=== PATIENT | female | born 1960 | race Caucasian/White ===

== ENCOUNTER 2017-03-23 15:34 | Emergency (ER) | payer OTHER ==
[~2017-03-23] VITALS: Ht 160 cm; Wt 104.3 kg
[~2017-03-23 15:34] MED LIST: SULF1TAB24 PO
[2017-03-23] MEDS ORDERED: FAMOTIDINE 20 MG/2 ML VIAL IVP ONE (16:15)
[2017-03-23] MEDS ORDERED: MORPHINE SULFATE 10 MG/ML VIAL. IV ONE ×2 (16:15→18:00)
[2017-03-23] MEDS ORDERED: IV NORMAL SALINE 1000ML BAG 1,000 ML IV ONE (16:15)
[2017-03-23] MEDS ORDERED: ONDANSETRON PF 4 MG/2 ML VIAL. IV ONE (16:15)
[2017-03-23 16:22] LABS: BASO # 0.1 x10^3/uL (0.0-0.2); BASO % 1 % (0-3); EOS % 3 % (0-3); HEMATOCRIT 40.9 % (36.0-47.0); HEMOGLOBIN 13.4 g/dL (12.0-15.5); LYMPH # 1.6 x10^3/uL (1.0-4.8); LYMPH % 14 % (24-48); MEAN CORPUSCULAR HEMOGLOBIN 28 pg (25-35); MEAN CORPUSCULAR HGB CONC 33 g/dL (31-37); MEAN CORPUSCULAR VOLUME 84 fL (79-100); MONO % 5 % (0-9); NEUT % 78 % (31-73); PLATELET COUNT 257 x10^3/uL (140-400); RED BLOOD COUNT 4.85 x10^6/uL (3.50-5.40); RED CELL DISTRIBUTION WIDTH 14.9 % (11.5-14.5); WHITE BLOOD COUNT 11.4 x10^3/uL (4.0-11.0)
--- NOTE | 2017-03-23 16:24 | PHYS DOC ---
Past Medical History Past Medical History: Arthritis, Asthma, Diverticulitis, Fibromyalgia, Hypertension, Hypothyroid, Other Additional Past Medical Histor: CHRONIC PAIN,TENDONITIS Past Surgical History: Appendectomy, Cholecystectomy, Hysterectomy Alcohol Use: None Drug Use: None Adult General Chief Complaint Chief Complaint: ABDOMINAL PAIN HPI HPI Patient is a 56 year old female with history of fibromyalgia, hypertension, hypothyroidism, diverticulitis, who presents today with generalized abdominal pain, and multiple episodes of diarrhea for the last 4 days. Patient states she believes this is from her diverticulitis. Patient denies any blood in her stools. Denies any nausea vomiting. She states she just came from the pain clinic to get a refill of her chronic pain medicine for fibromyalgia. She states she has tried clear liquid diet and managing her symptoms at home with no relief. Patient's also complaining of urinary frequency. She states she can barely sit down before she has to get up and go use the bathroom. PCP is Dr. Juani Valencia Review of Systems Review of Systems Constitutional: Denies fever or chills [] Eyes: Denies change in visual acuity, redness, or eye pain [] HENT: Denies nasal congestion or sore throat [] Respiratory: Denies cough or shortness of breath [] Cardiovascular: No additional information not addressed in HPI [] GI: Generalized abdominal pain with diarrhea : urinary frequency Musculoskeletal: Denies back pain or joint pain [] Integument: Denies rash or skin lesions [] Neurologic: Denies headache, focal weakness or sensory changes [] Endocrine: Denies polyuria or polydipsia [] Current Medications Current Medications Current Medications Medications (Trade) Dose Ordered Sig/Faye Start Time Stop Time Status Last Admin Dose Admin Famotidine (Pepcid) 20 mg 1X ONCE 03/23/17 16:15 03/23/17 16:17 DC 03/23/17 16:47 20 MG Info (Do NOT chart on this entry -- for MONITORING) 1 each PRN DAILY PRN 03/23/17 17:00 03/25/17 16:59 Iohexol (Omnipaque 300 Mg/ml) 75 ml 1X ONCE 03/23/17 17:00 03/23/17 17:01 DC Morphine Sulfate 5 mg 1X ONCE 03/23/17 18:00 03/23/17 18:01 DC 03/23/17 18:01 5 MG Ondansetron HCl (Zofran) 4 mg 1X ONCE 03/23/17 16:15 03/23/17 16:17 DC 03/23/17 16:45 4 MG Sodium Chloride 1,000 ml @ 1,000 mls/hr 1X ONCE 03/23/17 16:15 03/23/17 17:14 DC 03/23/17 16:45 1,000 MLS/HR Allergies Allergies Allergies Coded Allergies Type Severity Reaction Last Updated Verified Iodine and Iodide Containing Produc Allergy Intermediate RASH 03/23/17 Yes iodine Allergy Intermediate hives 03/23/17 Yes ketorolac Adverse Reaction Intermediate confused 06/17/16 Yes tramadol Adverse Reaction Intermediate confused 06/17/16 Yes Physical Exam Physical Exam Constitutional: Well developed, well nourished, no acute distress, non-toxic appearance. [] HENT: Normocephalic, atraumatic, bilateral external ears normal, oropharynx moist, no oral exudates, nose normal. [] Eyes: PERRLA, EOMI, conjunctiva normal, no discharge. [] Neck: Normal range of motion, no tenderness, supple, no stridor. [] Cardiovascular:Heart rate regular rhythm, no murmur [] Lungs & Thorax: Bilateral breath sounds clear to auscultation [] Abdomen: Rounded abdomen. Bowel sounds normal, soft, diffuse tenderness no point tenderness to the RUQ or RLQ tenderness, no masses, no pulsatile masses. [ ] Skin: Warm, dry, no erythema, no rash. [] Back: No tenderness, no CVA tenderness. [] Extremities: No tenderness, no cyanosis, no clubbing, ROM intact, no edema. [] Neurologic: Alert and oriented X 3, normal motor function, normal sensory function, no focal deficits noted. [] Psychologic: Affect normal, judgement normal, mood normal. [] Current Patient Data Vital Signs Vital Signs Date Time Temp Pulse Resp B/P (MAP) Pulse Ox O2 Delivery O2 Flow Rate FiO2 03/23/17 18:01 18 94 Room Air 03/23/17 17:52 73 140/72 (94) 2.0 03/23/17 16:51 98.1 98.1 Lab Values Laboratory Tests Test 03/23/17 15:45 03/23/17 15:57 White Blood Count 11.4 x10^3/uL (4.0-11.0) H Red Blood Count 4.85 x10^6/uL (3.50-5.40) Hemoglobin 13.4 g/dL (12.0-15.5) Hematocrit 40.9 % (36.0-47.0) Mean Corpuscular Volume 84 fL (79-100) Mean Corpuscular Hemoglobin 28 pg (25-35) Mean Corpuscular Hemoglobin Concent 33 g/dL (31-37) Red Cell Distribution Width 14.9 % (11.5-14.5) H Platelet Count 257 x10^3/uL (140-400) Neutrophils (%) (Auto) 78 % (31-73) H Lymphocytes (%) (Auto) 14 % (24-48) L Monocytes (%) (Auto) 5 % (0-9) Eosinophils (%) (Auto) 3 % (0-3) Basophils (%) (Auto) 1 % (0-3) Neutrophils # (Auto) 8.9 x10^3uL (1.8-7.7) H Lymphocytes # (Auto) 1.6 x10^3/uL (1.0-4.8) Monocytes # (Auto) 0.6 x10^3/uL (0.0-1.1) Eosinophils # (Auto) 0.3 x10^3/uL (0.0-0.7) Basophils # (Auto) 0.1 x10^3/uL (0.0-0.2) Sodium Level 142 mmol/L (136-145) Potassium Level 4.0 mmol/L (3.5-5.1) Chloride Level 104 mmol/L (98-107) Carbon Dioxide Level 30 mmol/L (21-32) Anion Gap 8 (6-14) Blood Urea Nitrogen 11 mg/dL (7-20) Creatinine 0.8 mg/dL (0.6-1.0) Estimated GFR (Cockcroft-Gault) 74.5 BUN/Creatinine Ratio 14 (6-20) Glucose Level 123 mg/dL (70-99) H Calcium Level 9.1 mg/dL (8.5-10.1) Total Bilirubin 0.3 mg/dL (0.2-1.0) Aspartate Amino Transferase (AST) 10 U/L (15-37) L Alanine Aminotransferase (ALT) 15 U/L (14-59) Alkaline Phosphatase 104 U/L (46-116) Creatine Kinase 51 U/L (26-192) Creatine Kinase MB (Mass) 0.7 ng/mL (0.0-3.6) Creatine Kinase MB Relative Index % (0-4) Troponin I Quantitative < 0.017 ng/mL (0.000-0.055) Total Protein 8.1 g/dL (6.4-8.2) Albumin 3.8 g/dL (3.4-5.0) Albumin/Globulin Ratio 0.9 (1.0-1.7) L Lipase 102 U/L (73-393) Urine Collection Type Unknown Urine Color Yellow Urine Clarity Clear Urine pH 7.0 Urine Specific [place] <=1.005 Urine Protein Negative mg/dL (NEG-TRACE) Urine Glucose (UA) Negative mg/dL (NEG) Urine Ketones (Stick) Negative mg/dL (NEG) Urine Blood Negative (NEG) Urine Nitrite Negative (NEG) Urine Bilirubin Negative (NEG) Urine Urobilinogen Dipstick 0.2 mg/dL (0.2 mg/dL) Urine Leukocyte Esterase Moderate (NEG) Urine RBC 0 /HPF (0-2) Urine WBC 11-20 /HPF (0-4) Urine Squamous Epithelial Cells Few /LPF Urine Bacteria 0 /HPF (0-FEW) Laboratory Tests 03/23/17 15:45 Laboratory Tests 03/23/17 15:45 EKG EKG [] Radiology/Procedures Radiology/Procedures []PROCEDURE: CT ABDOMEN PELVIS WO CONTRAST CT study of the abdomen and pelvis without contrast HISTORY: Abdominal pain and diarrhea. History of diverticulitis. Allergy to CT contrast. TECHNIQUE: Noncontrast helical CT scanning of the abdomen and pelvis was performed. Without contrast, the sensitivity to detect organ pathology and GI tract pathology is decreased. PQRS compliance Statement One or more of the following individualized dose reduction techniques were utilized for this study: 1. Automated exposure control 2. Adjustment of the mA and/or kV according to patient size 3. Use of iterative reconstruction technique. Comparison: None available. FINDINGS: The liver and spleen and pancreas are homogeneous in appearance on this noncontrast study. The gallbladder is surgically absent. No extra hepatic biliary ductal dilatation is seen. No adrenal mass is evident. No renal stone or ureteral stone or hydronephrosis or hydroureter is evident. Urinary bladder wall is smooth. There is a small cyst of the upper pole of the right kidney. No focal aneurysmal dilatation of the abdominal aorta is seen. No enlarged abdominal or pelvic lymphadenopathy is seen. The urinary bladder wall is smooth. Sigmoid diverticulosis is seen without diverticulitis. The appendix is not identified. There are no CT findings of appendicitis. No obstructive bowel pattern is seen. The uterus is surgically absent. No free air or free fluid or mesenteric inflammatory change is seen. There is a noncalcified lung nodule within the posterior right costophrenic angle which measures 8 mm. No osteolytic process is seen. IMPRESSION: No acute abnormality of the abdomen or pelvis is seen. No urinary tract stone or hydronephrosis or hydroureter is seen. Sigmoid diverticulosis is seen without diverticulitis. Noncalcified posterior right costophrenic angle lung nodule measuring 8 mm in size. Recommend a follow-up chest CT in 6-12 months. Electronically signed by: Jordan Prather MD (03/23/2017 5:49 PM) DICTATED and SIGNED BY: JORDAN PRATHER MD DATE: 03/23/17 1739 CC: ABHIJIT VALENCIA MD; RONAN NICOLE APRN; ANDREINA,STAFF ~ Course & Med Decision Making Course & Med Decision Making Pertinent Labs and Imaging studies reviewed. (See chart for details) This is a 56-year-old female patient with history of diverticulitis who presents today with abdominal pain and diarrhea for [address] of the abdomen and pelvic is negative for any acute findings. CBC with a WBC of 11.4. CMP with no acute findings. Cardiac workup is negative. Urine positive for UTI. Patient will be discharged with Cipro. Patient was instructed to follow-up with her own primary care doctor or transformation coach as soon as possible. Discharged with Lomotil for diarrhea and Zofran as needed. She gets pain medicine from the pain clinic. Dragon Disclaimer Dragon Disclaimer This electronic medical record was generated, in whole or in part, using a voice recognition dictation system. Departure Departure Impression: Primary Impression: Pyelonephritis Disposition: 01 HOME, SELF-CARE Condition: STABLE Referrals: ABHIJIT VALENCIA MD (PCP) follow up with your doctor in 1-3 days Patient Instructions: Diarrhea, Pyelonephritis, Adult Additional Instructions: You were was seen for a kidney infection and diarrhea. Take the prescribed antibiotics until completed. Follow-up with your own doctor as soon as you can including Dr. Moyer for GI. Scripts Diphenoxylate Hcl/Atropine (LOMOTIL TABLET) 1 Each Tablet 1 TAB PO QID, #20 TAB Prov: RONAN NICOLE APRN 03/23/17 Ciprofloxacin Hcl (CIPRO) 500 Mg Tablet 1 TAB PO BID, #14 TAB Prov: RONAN NICOLE APRN 03/23/17 Ondansetron (ZOFRAN ODT) 4 Mg Tab.rapdis 1 TAB SL Q8HRS, #15 TAB Prov: RONAN NICOLE APRN 03/23/17 RONAN NICOLE APRN Mar 23, 2017 16:24
[2017-03-23 16:38] LABS: CALCIUM 9.1 mg/dL (8.5-10.1); CREATININE 0.8 mg/dL (0.6-1.0); GFR 74.5
[2017-03-23 16:44] LABS: ALBUMIN 3.8 g/dL (3.4-5.0); ALBUMIN/GLOBULIN RATIO 0.9 (1.0-1.7); TOTAL BILIRUBIN 0.3 mg/dL (0.2-1.0); TOTAL PROTEIN 8.1 g/dL (6.4-8.2)
[2017-03-23] MEDS ORDERED: CONTRAST GIVEN MC PRN (17:00)
[2017-03-23] MEDS ORDERED: IOHEXOL 300 MG/ML 75 ML VIAL IV ONE (17:00)
[2017-03-23 17:23] LABS: CKMB MASS 0.7 ng/mL (0.0-3.6)
[2017-03-23 17:25] LABS: CREATINE KINASE 51 U/L (26-192)
--- NOTE | 2017-03-23 17:53 | RAD ---
CT study of the abdomen and pelvis without contrast HISTORY: Abdominal pain and diarrhea. History of diverticulitis. Allergy to CT contrast. TECHNIQUE: Noncontrast helical CT scanning of the abdomen and pelvis was performed. Without contrast, the sensitivity to detect organ pathology and GI tract pathology is decreased. PQRS compliance Statement One or more of the following individualized dose reduction techniques were utilized for this study: 1. Automated exposure control 2. Adjustment of the mA and/or kV according to patient size 3. Use of iterative reconstruction technique. Comparison: None available. FINDINGS: The liver and spleen and pancreas are homogeneous in appearance on this noncontrast study. The gallbladder is surgically absent. No extra hepatic biliary ductal dilatation is seen. No adrenal mass is evident. No renal stone or ureteral stone or hydronephrosis or hydroureter is evident. Urinary bladder wall is smooth. There is a small cyst of the upper pole of the right kidney. No focal aneurysmal dilatation of the abdominal aorta is seen. No enlarged abdominal or pelvic lymphadenopathy is seen. The urinary bladder wall is smooth. Sigmoid diverticulosis is seen without diverticulitis. The appendix is not identified. There are no CT findings of appendicitis. No obstructive bowel pattern is seen. The uterus is surgically absent. No free air or free fluid or mesenteric inflammatory change is seen. There is a noncalcified lung nodule within the posterior right costophrenic angle which measures 8 mm. No osteolytic process is seen. IMPRESSION: No acute abnormality of the abdomen or pelvis is seen. No urinary tract stone or hydronephrosis or hydroureter is seen. Sigmoid diverticulosis is seen without diverticulitis. Noncalcified posterior right costophrenic angle lung nodule measuring 8 mm in size. Recommend a follow-up chest CT in 6-12 months. Electronically signed by: Priyank Prather MD (03/23/2017 5:49 PM)
[2017-03-23 18:10] LABS: BILIRUBIN,URINE NEGATIVE (NEG); GLUCOSE,URINE NEGATIVE (NEG); NITRITE,URINE NEGATIVE (NEG); PROTEIN,URINE NEGATIVE (NEG-TRACE); UROBILINOGEN,URINE 0.2 mg/dL (0.2 mg/dL)
[2017-03-23 18:17] LABS: RBC,URINE 0 /HPF (0-2)
[2017-03-23 18:18] LABS: BACTERIA,URINE 0 /HPF (0-FEW); SQUAMOUS EPITHELIAL CELL,UR FEW /LPF
[2017-03-23 18:30] VITALS: BP 152/81
[2017-03-23] MEDS ORDERED: ONDA4TAB10 SL (18:58)
[2017-03-23] MEDS ORDERED: CIPR500T94 PO (18:58)
[2017-03-23] MEDS ORDERED: DIPH1TAB PO (19:00)
--- NOTE | 2017-03-24 06:34 | EKG ---
[facility] [address] [place] [address] Test Date: 2017-03-23 Test Time: 16:37:14 Pat Name: DANNY MELENDREZ Department: Room: Gender: F Government Auditor: : 1960 Requested By: RONAN NICOLE Order Number: [id number] Reading MD: Renee Glez Measurements Intervals [place] Rate: 71 P: 52 OR: 136 QRS: 49 QRSD: 80 T: 59 QT: 378 QTc: 411 Interpretive Statements SINUS RHYTHM NORMAL ECG RI6.01 No previous ECG available for comparison Electronically Signed On 03-25-2017 19:09:35 CDT by Renee Glez
== END 2017-03-23 19:04 | disposition home or self-care (01) ==
LOC: ER 15:34
DX: N12 Tubulo-interstitial nephritis, not specified as acute or chronic (principal); M19.90 Unspecified osteoarthritis, unspecified site; I10 Essential (primary) hypertension; E07.89 Other specified disorders of thyroid; M79.7 Fibromyalgia; Z90.49 Acquired absence of other specified parts of digestive tract; Z90.710 Acquired absence of both cervix and uterus; Z90.89 Acquired absence of other organs
CPT/HCPCS: 36415; 74176; 80053; 81001; 82553; 83690; 84484; 85027; 87086; 93005; 96361; 96374; 96375; 96376; 99285; J2270; J2405; J7030; S0028

== ENCOUNTER 2017-04-23 20:56 | Emergency (ER) | payer OTHER ==
[~2017-04-23] VITALS: Ht 157.5 cm; Wt 104.3 kg
[~2017-04-23 20:56] MED LIST changes: +CIPR500T94 PO; +DIPH1TAB PO; +ONDA4TAB10 SL
[2017-04-23 21:19] VITALS: BP 156/80
[2017-04-23 21:24] LABS: BILIRUBIN,URINE NEGATIVE (NEG); GLUCOSE,URINE NEGATIVE (NEG); NITRITE,URINE NEGATIVE (NEG); PH,URINE 7.5; PROTEIN,URINE NEGATIVE (NEG-TRACE); UROBILINOGEN,URINE 0.2 mg/dL (0.2 mg/dL)
[2017-04-23 21:35] LABS: BACTERIA,URINE FEW /HPF (0-FEW); RBC,URINE 0 /HPF (0-2); SQUAMOUS EPITHELIAL CELL,UR MOD /LPF
[2017-04-23 22:10] LABS: BASO # 0.1 x10^3/uL (0.0-0.2); BASO % 1 % (0-3); EOS % 3 % (0-3); HEMATOCRIT 41.4 % (36.0-47.0); HEMOGLOBIN 13.7 g/dL (12.0-15.5); LYMPH # 2.3 x10^3/uL (1.0-4.8); LYMPH % 22 % (24-48); MEAN CORPUSCULAR HEMOGLOBIN 28 pg (25-35); MEAN CORPUSCULAR HGB CONC 33 g/dL (31-37); MEAN CORPUSCULAR VOLUME 84 fL (79-100); MONO % 7 % (0-9); NEUT % 68 % (31-73); PLATELET COUNT 252 x10^3/uL (140-400); RED BLOOD COUNT 4.96 x10^6/uL (3.50-5.40); RED CELL DISTRIBUTION WIDTH 14.9 % (11.5-14.5); WHITE BLOOD COUNT 10.6 x10^3/uL (4.0-11.0)
[2017-04-23 22:32] LABS: CALCIUM 9.6 mg/dL (8.5-10.1); CREATININE 0.7 mg/dL (0.6-1.0); GFR 86.6; POTASSIUM 3.7 mmol/L (3.5-5.1)
[2017-04-23 22:37] LABS: ALBUMIN 3.9 g/dL (3.4-5.0); ALBUMIN/GLOBULIN RATIO 0.9 (1.0-1.7); TOTAL BILIRUBIN 0.3 mg/dL (0.2-1.0); TOTAL PROTEIN 8.2 g/dL (6.4-8.2)
[2017-04-23] MEDS ORDERED: SULF1TAB24 PO (23:54)
--- NOTE | 2017-04-23 23:55 | PHYS DOC ---
Past Medical History Past Medical History: Arthritis, Asthma, Diverticulitis, Fibromyalgia, Hypertension, Hypothyroid, Kidney Stone, Other Additional Past Medical Histor: CHRONIC PAIN,TENDONITIS,LITHOTRIPSY Past Surgical History: Appendectomy, Cholecystectomy, Hysterectomy Alcohol Use: None Drug Use: None Adult General Chief Complaint Chief Complaint: ABDOMINAL PAIN HPI HPI 57-year-old female presenting to the emergency department with dysuria polyuria and right flank pain. Pain is been present for 4 hours as a sharp shooting pain that is nonradiating intermittent and without alleviating factors. She reports similar symptoms with a previous UTI. She denies hematuria. She denies nausea vomiting. She denies fevers chills. Review of systems is negative for chest pain shortness of breath nausea vomiting. All other review of systems is negative unless otherwise noted in history of present illness. ED course: 57-year-old female presenting to the ER today with right flank pain and dysuria. Afebrile with mild tachycardia otherwise chronic hypertension present. Pertinent physical exam findings showed mild right CVA tenderness otherwise abdomen was soft and nontender.Soft nontender abdomen without rebound tenderness or guarding present. Negative McBurneys point. Negative Armstrong sign. No ecchymosis present. Blood work sent, urinalysis sent. CBC unremarkable. Urinalysis shows small leuk esterase with a few bacteria. Otherwise unremarkable. Chemistry panel unremarkable. The patient was given Bactrim to go home with for presumed urinary tract infection given the patient's symptoms. The patient was then discharged home in stable condition to follow up with their primary care physician over the next 2-3 days. They were to return if their symptoms worsened or if they were concerned for any reason. [id number] discharge instructions and return precautions were given. Patient's questions were answered to their satisfaction. Patient is comfortable plan. Review of Systems Review of Systems SEE ABOVE. Current Medications Current Medications Current Medications Medications (Trade) Dose Ordered Sig/Faye Start Time Stop Time Status Last Admin Dose Admin Trimethoprim/ Sulfamethoxazole (Bactrim Ds) 1 tab STK-MED ONCE 04/24/17 01:01 04/24/17 01:02 DC Allergies Allergies Allergies Coded Allergies Type Severity Reaction Last Updated Verified Iodine and Iodide Containing Produc Allergy Intermediate RASH 03/23/17 Yes iodine Allergy Intermediate hives 03/23/17 Yes ketorolac Adverse Reaction Intermediate confused 06/17/16 Yes tramadol Adverse Reaction Intermediate confused 06/17/16 Yes Physical Exam Physical Exam SEE ABOVE Constitutional: Well developed, well nourished, no acute distress, non-toxic appearance. [] HENT: Normocephalic, atraumatic, bilateral external ears normal, oropharynx moist, no oral exudates, nose normal. [] Eyes: PERRLA, EOMI, conjunctiva normal, no discharge. [] Neck: Normal range of motion, no tenderness, supple, no stridor. [] Cardiovascular:Heart rate regular rhythm, no murmur [] Lungs & Thorax: Bilateral breath sounds clear to auscultation [] Abdomen: Bowel sounds normal, soft, no tenderness, no masses, no pulsatile masses. [] Skin: Warm, dry, no erythema, no rash. [] Back:see above Extremities: No tenderness, no cyanosis, no clubbing, ROM intact, no edema. [] Neurologic: Alert and oriented X 3, normal motor function, normal sensory function, no focal deficits noted. [] Psychologic: Affect normal, judgement normal, mood normal. [] Current Patient Data Vital Signs Vital Signs Date Time Temp Pulse Resp B/P (MAP) Pulse Ox O2 Delivery O2 Flow Rate FiO2 04/23/17 21:19 98.1 98 20 156/80 (105) 98 Room Air 98.1 Lab Values Laboratory Tests Test 04/23/17 21:10 04/23/17 22:04 Urine Collection Type Unknown Urine Color Yellow Urine Clarity Clear Urine pH 7.5 Urine Specific [place] <=1.005 Urine Protein Negative mg/dL (NEG-TRACE) Urine Glucose (UA) Negative mg/dL (NEG) Urine Ketones (Stick) Negative mg/dL (NEG) Urine Blood Negative (NEG) Urine Nitrite Negative (NEG) Urine Bilirubin Negative (NEG) Urine Urobilinogen Dipstick 0.2 mg/dL (0.2 mg/dL) Urine Leukocyte Esterase Small (NEG) Urine RBC 0 /HPF (0-2) Urine WBC 11-20 /HPF (0-4) Urine Squamous Epithelial Cells Mod /LPF Urine Bacteria Few /HPF (0-FEW) White Blood Count 10.6 x10^3/uL (4.0-11.0) Red Blood Count 4.96 x10^6/uL (3.50-5.40) Hemoglobin 13.7 g/dL (12.0-15.5) Hematocrit 41.4 % (36.0-47.0) Mean Corpuscular Volume 84 fL (79-100) Mean Corpuscular Hemoglobin 28 pg (25-35) Mean Corpuscular Hemoglobin Concent 33 g/dL (31-37) Red Cell Distribution Width 14.9 % (11.5-14.5) H Platelet Count 252 x10^3/uL (140-400) Neutrophils (%) (Auto) 68 % (31-73) Lymphocytes (%) (Auto) 22 % (24-48) L Monocytes (%) (Auto) 7 % (0-9) Eosinophils (%) (Auto) 3 % (0-3) Basophils (%) (Auto) 1 % (0-3) Neutrophils # (Auto) 7.2 x10^3uL (1.8-7.7) Lymphocytes # (Auto) 2.3 x10^3/uL (1.0-4.8) Monocytes # (Auto) 0.7 x10^3/uL (0.0-1.1) Eosinophils # (Auto) 0.3 x10^3/uL (0.0-0.7) Basophils # (Auto) 0.1 x10^3/uL (0.0-0.2) Sodium Level 143 mmol/L (136-145) Potassium Level 3.7 mmol/L (3.5-5.1) Chloride Level 105 mmol/L (98-107) Carbon Dioxide Level 30 mmol/L (21-32) Anion Gap 8 (6-14) Blood Urea Nitrogen 6 mg/dL (7-20) L Creatinine 0.7 mg/dL (0.6-1.0) Estimated GFR (Cockcroft-Gault) 86.6 BUN/Creatinine Ratio 9 (6-20) Glucose Level 90 mg/dL (70-99) Calcium Level 9.6 mg/dL (8.5-10.1) Total Bilirubin 0.3 mg/dL (0.2-1.0) Aspartate Amino Transferase (AST) 12 U/L (15-37) L Alanine Aminotransferase (ALT) 15 U/L (14-59) Alkaline Phosphatase 108 U/L (46-116) Total Protein 8.2 g/dL (6.4-8.2) Albumin 3.9 g/dL (3.4-5.0) Albumin/Globulin Ratio 0.9 (1.0-1.7) L Lipase 168 U/L (73-393) Laboratory Tests 04/23/17 22:04 Laboratory Tests 04/23/17 22:04 EKG EKG [] Radiology/Procedures Radiology/Procedures [] Course & Med Decision Making Course & Med Decision Making Pertinent Labs and Imaging studies reviewed. (See chart for details) [] Dragon Disclaimer Dragon Disclaimer This electronic medical record was generated, in whole or in part, using a voice recognition dictation system. Departure Departure Impression: Primary Impression: UTI (urinary tract infection) Disposition: HOME, SELF-CARE Condition: STABLE Referrals: ABHIJIT GOLDSTEIN MD (PCP) Patient Instructions: Urinary Tract Infection Additional Instructions: Thank you for allowing us to participate in your care today. Followup with your primary care physician in 3 days if your symptoms do not improve. Call your Primary Doctor tomorrow and inform them of your visit today. If you do not have a primary care provider you can ask for a list of our primary care providers. Return to the emergency department you have any new or concerning findings. This should be evaluated by the primary care physician and any necessary consulting services for continued management within a few days after discharge. Return to emergency room if you have any new or concerning symptoms including but not limited to fever, chills, nausea, vomiting, intractable pain, any new rashes, chest pain, shortness of air, uncontrolled bleeding, difficulty breathing, and/or vision loss. Scripts Sulfamethoxazole/Trimethoprim (BACTRIM DS TABLET) 1 Each Tablet 1 TAB PO BID, #14 TAB Prov: JOCELINE SCHUMACHER MD 04/23/17 Problem Qualifiers Primary Impression: UTI (urinary tract infection) Urinary tract infection type: catheter-associated UTI JOCELINE SCHUMACHER MD Apr 23, 2017 23:55
[2017-04-24] MEDS ORDERED: SMZ/TMP 800/160MG TABLET. PO ONE ×2 (01:01→01:30)
== END 2017-04-24 01:06 | disposition home or self-care (01) ==
LOC: ER 20:56
DX: N39.0 Urinary tract infection, site not specified (principal); R00.0 Tachycardia, unspecified; M19.90 Unspecified osteoarthritis, unspecified site; J45.909 Unspecified asthma, uncomplicated; M79.7 Fibromyalgia; I10 Essential (primary) hypertension; E03.9 Hypothyroidism, unspecified; G89.29 Other chronic pain; Z87.440 Personal history of urinary (tract) infections; Z87.442 Personal history of urinary calculi; Z90.49 Acquired absence of other specified parts of digestive tract; Z90.710 Acquired absence of both cervix and uterus; Z91.041 Radiographic dye allergy status; Z88.5 Allergy status to narcotic agent; Z88.8 Allergy status to other drugs, medicaments and biological substances
CPT/HCPCS: 36415; 80053; 81001; 83690; 85027; 87086; 99284-25

== ENCOUNTER 2017-04-29 23:49 | Emergency (ER) | payer OTHER ==
[~2017-04-29] VITALS: Ht 157.5 cm; Wt 104.3 kg
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
[2017-04-30 02:08] VITALS: BP 123/65
== END 2017-04-30 02:13 | disposition home or self-care (01) ==
LOC: ER 23:49
DX: S13.4XXA Sprain of ligaments of cervical spine, initial encounter (principal); S39.012A Strain of muscle, fascia and tendon of lower back, initial encounter; S09.90XA Unspecified injury of head, initial encounter; M19.90 Unspecified osteoarthritis, unspecified site; J45.909 Unspecified asthma, uncomplicated; M79.7 Fibromyalgia; I10 Essential (primary) hypertension; E03.9 Hypothyroidism, unspecified; G89.29 Other chronic pain; Z87.442 Personal history of urinary calculi; Z90.49 Acquired absence of other specified parts of digestive tract; Z88.5 Allergy status to narcotic agent; Z88.8 Allergy status to other drugs, medicaments and biological substances; Z91.041 Radiographic dye allergy status; Z90.710 Acquired absence of both cervix and uterus; V49.40XA Driver injured in collision with unspecified motor vehicles in traffic accident, initial encounter; Y93.I9 Activity, other involving external motion; Y92.410 Unspecified street and highway as the place of occurrence of the external cause; Y99.8 Other external cause status
CPT/HCPCS: 70450; 72125; 72128; 72131; 99284-25

== ENCOUNTER 2017-05-17 22:02 | Emergency (ER) | payer OTHER ==
[~2017-05-17] VITALS: Ht 157.5 cm; Wt 98.9 kg
[2017-05-17 22:13] VITALS: BP 138/83
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
--- NOTE | 2017-05-18 07:27 | RAD ---
Left finger 3 views 05/17/2017 Clinical indication: Left finger pain second digit. Comparison: None. Findings: No acute fracture or traumatic malalignment. Joint spaces are maintained. No abnormal periarticular calcifications. Impression: No acute osseous abnormality, with attention to the second digit.
== END 2017-05-17 22:35 | disposition home or self-care (01) ==
LOC: ER 22:02
DX: S60.022A Contusion of left index finger without damage to nail, initial encounter (principal); M19.90 Unspecified osteoarthritis, unspecified site; J45.909 Unspecified asthma, uncomplicated; M79.7 Fibromyalgia; I10 Essential (primary) hypertension; E03.9 Hypothyroidism, unspecified; G89.29 Other chronic pain; Z90.49 Acquired absence of other specified parts of digestive tract; Z90.710 Acquired absence of both cervix and uterus; Z88.8 Allergy status to other drugs, medicaments and biological substances; Z88.5 Allergy status to narcotic agent; W23.0XXA Caught, crushed, jammed, or pinched between moving objects, initial encounter; Y93.89 Activity, other specified; Y92.89 Other specified places as the place of occurrence of the external cause; Y99.8 Other external cause status
CPT/HCPCS: 73140; 99284

== ENCOUNTER → 2017-07-25 | Outpatient (CLI) | payer OTHER ==
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
== END | disposition home or self-care (01) ==
LOC: RAD 13:08
PROVIDERS: ATTEND Nurse Practitioner Family
DX: M51.36 Other intervertebral disc degeneration, lumbar region (principal); V49.9XXA Car occupant (driver) (passenger) injured in unspecified traffic accident, initial encounter; Y93.89 Activity, other specified; Y92.89 Other specified places as the place of occurrence of the external cause; Y99.8 Other external cause status
CPT/HCPCS: 72050; 72072; 72100

== ENCOUNTER 2018-02-03 18:41 | Emergency (ER) | payer OTHER ==
[2018-02-03] MEDS: cefTRIAXone IM 1 GM VIAL IM (19:22)
== END 2018-02-03 19:35 | disposition home or self-care (01) ==
LOC: ER 19:35
DX: J01.40 Acute pansinusitis, unspecified (principal); J40 Bronchitis, not specified as acute or chronic; G89.29 Other chronic pain; E03.9 Hypothyroidism, unspecified; I10 Essential (primary) hypertension; J45.909 Unspecified asthma, uncomplicated; Z88.6 Allergy status to analgesic agent; Z91.041 Radiographic dye allergy status
CPT/HCPCS: 96372; 99283-25; J0696

== ENCOUNTER → 2018-02-12 | Outpatient (CLI) | payer OTHER | END | disposition home or self-care (01) | LOC: MAMMO 14:17 | DX: Z12.31 Encounter for screening mammogram for malignant neoplasm of breast (principal); I10 Essential (primary) hypertension; E03.9 Hypothyroidism, unspecified | CPT/HCPCS: 77063; 77067 ==

== ENCOUNTER → 2018-06-14 | Outpatient (CLI) | payer OTHER ==
[2018-02-03 19:00] VITALS: BP 145/84
[~2018-06-14] MED LIST changes: +AMOX1TAB61 PO; +BENZ100C PO
--- NOTE | 2018-06-14 15:25 | RAD ---
EXAM: Cervical spine, 3 views. HISTORY: Pain. COMPARISON: None. FINDINGS: 3 views of the cervical spine are obtained. There is no listhesis. The vertebral kim are normal in height. There are bulky anterior osteophytes at C4-C5, and to lesser extent, C5-C6 and C6-C7. There is facet arthropathy at multiple levels. IMPRESSION: 1. Multilevel degenerative change, primarily at C4-C5. 2. No acute osseous finding. Electronically signed by: Claudia Adamson MD (06/14/2018 3:21 PM) [place] [id number]
== END | disposition home or self-care (01) ==
LOC: RAD 14:29
PROVIDERS: ATTEND Physical Medicine & Rehabilitation
DX: M47.892 Other spondylosis, cervical region (principal); M25.78 Osteophyte, vertebrae; M12.88 Other specific arthropathies, not elsewhere classified, other specified site; I10 Essential (primary) hypertension; E03.9 Hypothyroidism, unspecified; Z87.442 Personal history of urinary calculi; Z87.19 Personal history of other diseases of the digestive system; Z87.891 Personal history of nicotine dependence; Z90.49 Acquired absence of other specified parts of digestive tract; Z90.710 Acquired absence of both cervix and uterus; Z88.5 Allergy status to narcotic agent; Z88.6 Allergy status to analgesic agent; Z88.8 Allergy status to other drugs, medicaments and biological substances
CPT/HCPCS: 72040

== ENCOUNTER 2018-06-28 14:41 | Emergency (ER) | payer OTHER ==
[~2018-06-28] VITALS: Ht 157.5 cm; Wt 106.6 kg
[2018-06-28 14:48] VITALS: BP 165/80
--- NOTE | 2018-06-28 15:10 | PHYS DOC ---
Past Medical History Past Medical History: Arthritis, Asthma, Diverticulitis, Fibromyalgia, Hypertension, Hypothyroid, Kidney Stone, Other Additional Past Medical Histor: CHRONIC PAIN,TENDONITIS,LITHOTRIPSY Past Surgical History: Appendectomy, Cholecystectomy, Hysterectomy Alcohol Use: None Drug Use: None Adult General Chief Complaint Chief Complaint: ABDOMINAL PAIN HPI HPI Patient is a 58 year old female presented to ER today for evaluation of nausea vomiting and abdominal distention. Patient said the symptoms have been going on for about a month, however get worse in the last week. Patient said whenever she ate her belly get distended. She denies history of appendectomy, hysterectomy, cholecystectomy. Patient is on OxyContin, morphine chronically for pain syndrome. Patient denies any blood in her stool, no blood in her vomitus. Patient denies any fever. Patient denies any chest pain, no trouble breathing. Review of Systems Review of Systems Constitutional: Denies fever or chills [] Eyes: Denies change in visual acuity, redness, or eye pain [] HENT: Denies nasal congestion or sore throat [] Respiratory: Denies cough or shortness of breath [] Cardiovascular: No additional information not addressed in HPI [] GI: Positive for abdominal pain, nausea or vomiting. : Denies dysuria or hematuria [] Musculoskeletal: Denies back pain or joint pain [] Integument: Denies rash or skin lesions [] Neurologic: Denies headache, focal weakness or sensory changes [] Endocrine: Denies polyuria or polydipsia [] All other systems were reviewed and found to be within normal limits, except as documented in this note. Allergies Allergies Allergies Coded Allergies Type Severity Reaction Last Updated Verified Iodine and Iodide Containing Produc Allergy Intermediate RASH 03/23/17 Yes iodine Allergy Intermediate hives 03/23/17 Yes ketorolac Adverse Reaction Intermediate confused 06/17/16 Yes tramadol Adverse Reaction Intermediate confused 06/17/16 Yes Physical Exam Physical Exam Constitutional: Well developed, well nourished, no acute distress, non-toxic appearance. [] HENT: Normocephalic, atraumatic, bilateral external ears normal, oropharynx moist, no oral exudates, nose normal. [] Eyes: PERRLA, EOMI, conjunctiva normal, no discharge. [] Neck: Normal range of motion, no tenderness, supple, no stridor. [] Cardiovascular:Heart rate regular rhythm, no murmur [] Lungs & Thorax: Bilateral breath sounds clear to auscultation [] Abdomen: Bowel sounds hyperactive, abdomen distended but soft , no tenderness, no masses, no pulsatile masses. [] Skin: Warm, dry, no erythema, no rash. [] Back: No tenderness, no CVA tenderness. [] Extremities: No tenderness, no cyanosis, no clubbing, ROM intact, no edema. [] Neurologic: Alert and oriented X 3, normal motor function, normal sensory function, no focal deficits noted. [] Psychologic: Affect normal, judgement normal, mood normal. [] Current Patient Data Vital Signs Vital Signs Date Time Temp Pulse Resp B/P (MAP) Pulse Ox O2 Delivery O2 Flow Rate FiO2 06/28/18 14:48 98.2 91 18 165/80 (108) 96 Room Air 98.2 Lab Values Laboratory Tests Test 06/28/18 14:50 06/28/18 15:11 Urine Collection Type Clean catch Urine Color Yellow Urine Clarity Clear Urine pH 8.0 Urine Specific [place] 1.020 Urine Protein Negative mg/dL (NEG-TRACE) Urine Glucose (UA) Negative mg/dL (NEG) Urine Ketones (Stick) Negative mg/dL (NEG) Urine Blood Negative (NEG) Urine Nitrite Negative (NEG) Urine Bilirubin Negative (NEG) Urine Urobilinogen Dipstick 0.2 mg/dL (0.2 mg/dL) Urine Leukocyte Esterase Small (NEG) Urine RBC 0 /HPF (0-2) Urine WBC Occ /HPF (0-4) Urine Squamous Epithelial Cells Few /LPF Urine Bacteria 0 /HPF (0-FEW) Urine Mucus Slight /LPF White Blood Count 9.1 x10^3/uL (4.0-11.0) Red Blood Count 4.90 x10^6/uL (3.50-5.40) Hemoglobin 13.8 g/dL (12.0-15.5) Hematocrit 40.9 % (36.0-47.0) Mean Corpuscular Volume 84 fL (79-100) Mean Corpuscular Hemoglobin 28 pg (25-35) Mean Corpuscular Hemoglobin Concent 34 g/dL (31-37) Red Cell Distribution Width 14.3 % (11.5-14.5) Platelet Count 268 x10^3/uL (140-400) Neutrophils (%) (Auto) 63 % (31-73) Lymphocytes (%) (Auto) 26 % (24-48) Monocytes (%) (Auto) 7 % (0-9) Eosinophils (%) (Auto) 3 % (0-3) Basophils (%) (Auto) 1 % (0-3) Neutrophils # (Auto) 5.7 x10^3uL (1.8-7.7) Lymphocytes # (Auto) 2.4 x10^3/uL (1.0-4.8) Monocytes # (Auto) 0.7 x10^3/uL (0.0-1.1) Eosinophils # (Auto) 0.3 x10^3/uL (0.0-0.7) Basophils # (Auto) 0.1 x10^3/uL (0.0-0.2) Sodium Level 141 mmol/L (136-145) Potassium Level 4.1 mmol/L (3.5-5.1) Chloride Level 104 mmol/L (98-107) Carbon Dioxide Level 27 mmol/L (21-32) Anion Gap 10 (6-14) Blood Urea Nitrogen 7 mg/dL (7-20) Creatinine 0.7 mg/dL (0.6-1.0) Estimated GFR (Cockcroft-Gault) 86.2 BUN/Creatinine Ratio 10 (6-20) Glucose Level 100 mg/dL (70-99) H Calcium Level 8.9 mg/dL (8.5-10.1) Total Bilirubin 0.3 mg/dL (0.2-1.0) Aspartate Amino Transferase (AST) 15 U/L (15-37) Alanine Aminotransferase (ALT) 20 U/L (14-59) Alkaline Phosphatase 120 U/L (46-116) H Total Protein 8.1 g/dL (6.4-8.2) Albumin 4.1 g/dL (3.4-5.0) Albumin/Globulin Ratio 1.0 (1.0-1.7) Lipase 120 U/L (73-393) Laboratory Tests 06/28/18 15:11 Laboratory Tests 06/28/18 15:11 EKG EKG [] Radiology/Procedures Radiology/Procedures [facility] [address] [place] [address] IMAGING REPORT Signed PATIENT: DANNY MELENDREZ ACCOUNT: [id number] : 1960 LOCATION: ER AGE: 58 SEX: F EXAM STATUS: REG ER ORD. PHYSICIAN: ZULEIMA CLAUDIO DO REASON: ABDOMINAL PAIN, NAUSEA AND VOMITING PROCEDURE: CT ABDOMEN PELVIS WO CONTRAST Examination: CT of the abdomen pelvis without contrast HISTORY: History of abdominal pain for one month, vomiting COMPARISON: None available TECHNIQUE: Axial CT images of the abdomen pelvis were performed without contrast. Coronal and sagittal reformats are performed Exposure: One or more of the following individualized dose reduction techniques were utilized for this examination: 1. Automated exposure control 2. Adjustment of the mA and/or kV according to patient size 3. Use of iterative reconstruction technique FINDINGS: 4 mm nodule identified in the right lung base. No evidence of free air identified in the abdomen. The evaluation of the solid organs is limited due to lack of IV contrast. The evaluation of bowel is limited due to lack of oral contrast. The visualized noncontrasted liver, spleen, adrenals grossly appears unremarkable. Cholecystectomy clips identified. The stomach is mildly distended. The visualized pancreas grossly appears unremarkable. The small bowel is nondilated. Feces and gas noted in the colon. Multiple colonic diverticulosis identified. Urinary bladder is mildly distended no evidence of lytic bony destructive lesion identified. No evidence of hydronephrosis. Mild degenerative changes lumbar spine. IMPRESSION: 1. No acute intra-abdominal findings. 2. Sigmoid colon diverticulosis. 3. 4 mm nodule identified in the right lung base. Follow-up CT per Fleischner Society guidelines. Electronically signed by: Cameron Mead MD (06/28/2018 3:52 PM) [id number] DICTATED and SIGNED BY: CAMERON MEAD MD DATE: 06/28/18 1545 Impressions: ABDOMINAL PAIN Course & Med Decision Making Course & Med Decision Making Pertinent Labs and Imaging studies reviewed. (See chart for details) [] Dragon Disclaimer Dragon Disclaimer This electronic medical record was generated, in whole or in part, using a voice recognition dictation system. Departure Departure Impression: Primary Impression: Abdominal pain Additional Impression: Constipation Disposition: 01 HOME, SELF-CARE Condition: STABLE Referrals: ABHIJIT GOLDSTEIN MD (PCP) Patient Instructions: Abdominal Migraine, Constipation, Adult Problem Qualifiers ZULEIMA CLAUDIO DO Jun 28, 2018 15:10
[2018-06-28 15:24] LABS: BASO # 0.1 x10^3/uL (0.0-0.2); BASO % 1 % (0-3); EOS # 0.3 x10^3/uL (0.0-0.7); EOS % 3 % (0-3); HEMATOCRIT 40.9 % (36.0-47.0); HEMOGLOBIN 13.8 g/dL (12.0-15.5); LYMPH # 2.4 x10^3/uL (1.0-4.8); LYMPH % 26 % (24-48); MEAN CORPUSCULAR HEMOGLOBIN 28 pg (25-35); MEAN CORPUSCULAR HGB CONC 34 g/dL (31-37); MEAN CORPUSCULAR VOLUME 84 fL (79-100); MONO # 0.7 x10^3/uL (0.0-1.1); MONO % 7 % (0-9); NEUT # 5.7 x10^3uL (1.8-7.7); NEUT % 63 % (31-73); PLATELET COUNT 268 x10^3/uL (140-400); RED CELL DISTRIBUTION WIDTH 14.3 % (11.5-14.5); WHITE BLOOD COUNT 9.1 x10^3/uL (4.0-11.0)
[2018-06-28 15:24] LABS: BILIRUBIN,URINE NEGATIVE (NEG); CLARITY,URINE CLEAR; COLOR,URINE YELLOW; NITRITE,URINE NEGATIVE (NEG); PROTEIN,URINE NEGATIVE (NEG-TRACE); UROBILINOGEN,URINE 0.2 mg/dL (0.2 mg/dL)
[2018-06-28 15:37] LABS: RBC,URINE 0 /HPF (0-2); WBC,URINE OCC /HPF (0-4)
[2018-06-28 15:38] LABS: BACTERIA,URINE 0 /HPF (0-FEW); SQUAMOUS EPITHELIAL CELL,UR FEW /LPF
[2018-06-28 15:41] LABS: CALCIUM 8.9 mg/dL (8.5-10.1); CREATININE 0.7 mg/dL (0.6-1.0); GFR 86.2; POTASSIUM 4.1 mmol/L (3.5-5.1)
[2018-06-28 15:47] LABS: ALBUMIN 4.1 g/dL (3.4-5.0); TOTAL BILIRUBIN 0.3 mg/dL (0.2-1.0); TOTAL PROTEIN 8.1 g/dL (6.4-8.2)
--- NOTE | 2018-06-28 15:55 | RAD ---
Examination: CT of the abdomen pelvis without contrast HISTORY: History of abdominal pain for one month, vomiting COMPARISON: None available TECHNIQUE: Axial CT images of the abdomen pelvis were performed without contrast. Coronal and sagittal reformats are performed Exposure: One or more of the following individualized dose reduction techniques were utilized for this examination: 1. Automated exposure control 2. Adjustment of the mA and/or kV according to patient size 3. Use of iterative reconstruction technique FINDINGS: 4 mm nodule identified in the right lung base. No evidence of free air identified in the abdomen. The evaluation of the solid organs is limited due to lack of IV contrast. The evaluation of bowel is limited due to lack of oral contrast. The visualized noncontrasted liver, spleen, adrenals grossly appears unremarkable. Cholecystectomy clips identified. The stomach is mildly distended. The visualized pancreas grossly appears unremarkable. The small bowel is nondilated. Feces and gas noted in the colon. Multiple colonic diverticulosis identified. Urinary bladder is mildly distended no evidence of lytic bony destructive lesion identified. No evidence of hydronephrosis. Mild degenerative changes lumbar spine. IMPRESSION: 1. No acute intra-abdominal findings. 2. Sigmoid colon diverticulosis. 3. 4 mm nodule identified in the right lung base. Follow-up CT per Fleischner Society guidelines. Electronically signed by: Cameron Mead MD (06/28/2018 3:52 PM) [id number]
== END 2018-06-28 16:14 | disposition home or self-care (01) ==
LOC: ER 14:41
DX: K59.00 Constipation, unspecified (principal); K57.30 Diverticulosis of large intestine without perforation or abscess without bleeding; R91.1 Solitary pulmonary nodule; R11.2 Nausea with vomiting, unspecified; M19.90 Unspecified osteoarthritis, unspecified site; J45.909 Unspecified asthma, uncomplicated; M79.7 Fibromyalgia; I10 Essential (primary) hypertension; E03.9 Hypothyroidism, unspecified; Z87.442 Personal history of urinary calculi; Z90.89 Acquired absence of other organs; Z90.49 Acquired absence of other specified parts of digestive tract; Z90.710 Acquired absence of both cervix and uterus; Z88.8 Allergy status to other drugs, medicaments and biological substances
CPT/HCPCS: 36415; 74176; 80053; 81001; 83690; 85025; 87086; 87186; 99285

== ENCOUNTER 2019-08-24 16:09 | Emergency (ER) | payer OTHER ==
[~2019-08-24] VITALS: Ht 157.5 cm; Wt 90.7 kg
[2019-08-24 16:25] VITALS: BP 164/74
[2019-08-24] MEDS ORDERED: DEXAMETHASONE SOD PHOS 20 MG/5 ML VIAL. PO ONE (17:00)
[2019-08-24] MEDS ORDERED: AMOX1TAB61 PO (17:05)
--- NOTE | 2019-08-24 17:05 | PHYS DOC ---
Past Medical History Past Medical History: Arthritis, Asthma, COPD, Diverticulitis, Fibromyalgia, Hypertension, Hypothyroid, Kidney Stone, Other Additional Past Medical Histor: CHRONIC PAIN,TENDONITIS,LITHOTRIPSY (NICK ESCOBEDO APRN) Past Surgical History: No Surgical History, Appendectomy, Cholecystectomy, Hysterectomy (NICK ESCOBEDO APRN) Alcohol Use: None Drug Use: None (NICK ESCOBEDO APRN) Adult General Chief Complaint Chief Complaint: SORE THROAT HPI HPI Patient is a 59 year old female, accompanied by her family, who presents to the emergency department with complaints of right ear pain and a sensation of water in her right ear, a productive cough with yellow sputum, wheezing, fever up to 100 degrees, and nausea for the last week. Patient states that last night her cough was so severe it caused her to wake up. She also complains of having a sore throat and nasal congestion with the onset of symptoms. Patient denies any abdominal pain, vomiting, diarrhea, or shortness of breath. Currently she rates her pain as 7 out of 10 on the pain scale, she states that her narcotic medications that are prescribed for her chronic pain are only helping a little bit. She denies any body aches, weakness, or headache. All other ROS is neg unless otherwise noted in HPI. (NICK ESCOBEDO APRN) Review of Systems Review of Systems See Above (NICK ESCOBEDO APRN) Current Medications Current Medications Current Medications Medications (Trade) Dose Ordered Sig/Faye Start Time Stop Time Status Last Admin Dose Admin Dexamethasone Sodium Phosphate (Decadron) 10 mg 1X ONCE 08/24/19 17:00 08/24/19 17:01 DC 08/24/19 17:01 10 MG (BRANDIE PHILLIPS MD) Allergies Allergies Allergies Coded Allergies Type Severity Reaction Last Updated Verified Iodine and Iodide Containing Produc Allergy Intermediate RASH 03/23/17 Yes iodine Allergy Intermediate hives 03/23/17 Yes ketorolac Adverse Reaction Intermediate confused 06/17/16 Yes tramadol Adverse Reaction Intermediate confused 06/17/16 Yes (BRADNIE PHILLIPS MD) Physical Exam Physical Exam See Above Constitutional: Well developed, well nourished, no acute distress, non-toxic appearance, obese [] HENT: Normocephalic, atraumatic, bilateral external ears normal, bilateral TMs normal, posterior pharynx without erythema or exudate, oropharynx moist, no oral exudates, nasal turbinates edematous and erythematous bilaterally Eyes: PERRLA, EOMI, conjunctiva normal, no discharge. [] Neck: Normal range of motion, no tenderness, supple, no stridor. [] Cardiovascular: Heart rate regular rhythm, no murmur [] Lungs & Thorax: Bilateral breath sounds clear to auscultation in upper lobes bilat, coarse and slightly diminished in posterior short[] Skin: Warm, dry, no erythema, no rash. [] Back: No tenderness Extremities:No cyanosis, no clubbing, ROM intact, no edema. [] Neurologic: Alert and oriented X 3, no focal deficits noted. [] Psychologic: Affect normal, judgement normal, mood normal. [] (NICK ESCOBEDO APRN) Current Patient Data Vital Signs Vital Signs Date Time Temp Pulse Resp B/P (MAP) Pulse Ox O2 Delivery O2 Flow Rate FiO2 08/24/19 16:25 98.3 75 17 164/74 (104) 96 Room Air 98.3 (BRANDIE PHILLIPS MD) EKG EKG [] (NICK ESCOBEDO APRN) Radiology/Procedures Radiology/Procedures [] (NICK ESCOBEDO APRN) Course & Med Decision Making Course & Med Decision Making Pertinent Labs and Imaging studies reviewed. (See chart for details) dx: URI, acute bronchitis, pharyngititis Prescription for Augmentin written due to patient's history of COPD. Patient was given 10 mg of by mouth Decadron in the emergency department. Recommend follow- up with primary care doctor in 1-2 days for reexamination. Continue using her inhalers as prescribed. Patient verbalized an understanding of home care, medications, follow-up, and return to ED instructions and was in agreement with the plan of care. [] (NICK ESCOBEDO APRN) Course & Med Decision Making Staff Physician Addendum: I was working in the ER during the course of this patient's visit. I was available for consultation as needed, but I was not directly involved in the care of this patient. (BRANDIE PHILLIPS MD) Dragon Disclaimer Dragon Disclaimer This electronic medical record was generated, in whole or in part, using a voice recognition dictation system. (NICK ESCOBEDO APRN) Departure Departure Impression: Primary Impression: URI (upper respiratory infection) Additional Impressions: Bronchitis Pharyngitis Disposition: 01 HOME, SELF-CARE Condition: STABLE Referrals: ABHIJIT GOLDSTEIN MD (PCP) Patient Instructions: Acute Bronchitis, [id number], Upper Respiratory Infection, Adult, [id number], Viral Pharyngitis Additional Instructions: Fill prescription(s) and use as directed. Recommend use of a Cool mist humidifier in room at bedtime. Alternate Tylenol or ibuprofen as needed for pain/fever. Increase clear fluids. Avoid airway triggers such as smoke, fragrance, dust, and pollen. May take [id number] cough suppressants as needed. Follow-up with your primary care doctor in 1-2 days, return to the ER if symptoms worsen. Scripts Amoxicillin/Potassium Clav (AUGMENTIN 875-125 TABLET) 1 Each Tablet 1 TAB PO BID for 7 Days, #14 TAB 0 Refills Prov: NICK ESCOBEDO APRN 08/24/19 Problem Qualifiers Primary Impression: URI (upper respiratory infection) URI type: unspecified URI Qualified Codes: J06.9 - Acute upper respiratory infection, unspecified Additional Impressions: Pharyngitis Pharyngitis/tonsillitis etiology: unspecified etiology Qualified Codes: J02.9 - Acute pharyngitis, unspecified NICK ESCOBEDO APRN Aug 24, 2019 17:05 BRANDIE PHILLIPS MD Aug 24, 2019 17:19
== END 2019-08-24 17:08 | disposition home or self-care (01) ==
LOC: ER 16:09
DX: J44.9 Chronic obstructive pulmonary disease, unspecified (principal); H92.01 Otalgia, right ear; J02.9 Acute pharyngitis, unspecified; I10 Essential (primary) hypertension; E03.9 Hypothyroidism, unspecified; G89.29 Other chronic pain; Z91.041 Radiographic dye allergy status; Z88.6 Allergy status to analgesic agent; Z88.8 Allergy status to other drugs, medicaments and biological substances
CPT/HCPCS: 99283; J1100

== ENCOUNTER → 2019-10-15 | Outpatient (CLI) | payer OTHER ==
--- NOTE | 2019-10-15 16:53 | RAD ---
MR of the left wrist HISTORY: Mass at the dorsal right wrist. TECHNIQUE: Routine multiplanar sequences are obtained wrist and distal forearm. FINDINGS: There is prominent subcutaneous fatty signal posterior to the distal radius and ulna extending to the level of the radiocarpal joint. This is very poorly encapsulated but measures about 4 cm longitudinal by 1 cm thickness. Difficult to determine width. This could represent a poorly encapsulated lipoma. Consists of mostly fatty signal, apart from thin internal septations. There is more prominent linear nonfatty signal at its distal aspect, just posterior to the radio scaphoid joint, may be within the lesion or some adjacent scarring/fibrosis. No evidence of acute fracture. No aggressive bone destruction. Patchy cystic-type change within carpal bones particularly the proximal capitate and proximal hamate bone. These are likely degenerative. There is some thinning or chondromalacia at the lunocapitate joint. Mild degenerative changes at the triscaphe and first carpometacarpal joint. Degenerative changes at the radiocarpal joint. Ulna minus variance. No evidence of triangular fibrocartilage tear. Extensor carpi ulnaris tendon is subluxed medially over the ulnar styloid but intrinsically intact. Other extensor compartments are intact. Flexor tendons are intact. Median nerve appears unremarkable. Fluid signal lesion anterior to the radioscaphoid joint, most compatible with a ganglion or cyst, measures 18 mm. No significant joint effusion. IMPRESSION: 1. Very poorly defined prominent subcutaneous fatty tissue posterior to the distal radius and ulna with some internal septations. This may represent a poorly encapsulated atypical lipoma. Some more prominent linear low signal within the fat at the distal aspect could be within the lesion or fibrosis or scarring within the adjacent fat. The clinical concern, could obtain periodic follow-up MR to document stability, or sooner if there is clinical growth. 2. No soft tissue cyst or ganglion anterior to the radioscaphoid joint. 3. DJD. 4. Mild medial subluxation of the extensor carpi ulnaris tendon. Electronically signed by: Dinesh eDnson MD (10/15/2019 4:50 PM) [id number]
== END | disposition home or self-care (01) ==
LOC: MRI 15:08
PROVIDERS: ATTEND Orthopaedic Surgery
DX: R22.31 Localized swelling, mass and lump, right upper limb (principal); S63.091A Other subluxation of right wrist and hand, initial encounter; M19.031 Primary osteoarthritis, right wrist; X58.XXXA Exposure to other specified factors, initial encounter; Y93.89 Activity, other specified; Y92.89 Other specified places as the place of occurrence of the external cause; Y99.8 Other external cause status
CPT/HCPCS: 73221

== ENCOUNTER 2019-11-16 17:03 | Emergency (ER) | payer OTHER ==
[~2019-11-16] VITALS: Ht 160 cm; Wt 90.0 kg
[2019-11-16 17:15] VITALS: BP 158/84
[2019-11-16] MEDS ORDERED: IV NORMAL SALINE 1000ML BAG 1,000 ML IV ONE (17:45)
[2019-11-16] MEDS ORDERED: ONDANSETRON PF 4 MG/2 ML VIAL. IVP ONE (17:45)
[2019-11-16] MEDS ORDERED: MORPHINE SULFATE 4 MG/ML VIAL. IV ONE (17:45)
[2019-11-16 18:02] LABS: BARBITURATES NEG (NEG); BENZODIAZEPINES NEG (NEG); CANNABINOIDS NEG (NEG); COCAINE NEG (NEG); METHADONE NEG (NEG); OPIATES POS (NEG); PHENCYCLIDINE NEG (NEG)
[2019-11-16 18:06] LABS: AMPHETAMINE/METHAMPHETAMINE NEG (NEG)
[2019-11-16 18:08] LABS: BILIRUBIN,URINE NEGATIVE (NEG); CLARITY,URINE CLEAR; COLOR,URINE YELLOW; NITRITE,URINE NEGATIVE (NEG); PROTEIN,URINE NEGATIVE (NEG-TRACE); UROBILINOGEN,URINE 0.2 mg/dL (0.2 mg/dL)
[2019-11-16 18:21] LABS: BASO # 0.1 x10^3/uL (0.0-0.2); BASO % 1 % (0-3); EOS # 0.1 x10^3/uL (0.0-0.7); EOS % 1 % (0-3); HEMOGLOBIN 14.3 g/dL (12.0-15.5); LYMPH # 1.2 x10^3/uL (1.0-4.8); LYMPH % 17 % (24-48); MEAN CORPUSCULAR HEMOGLOBIN 28 pg (25-35); MEAN CORPUSCULAR HGB CONC 33 g/dL (31-37); MEAN CORPUSCULAR VOLUME 85 fL (79-100); MONO # 0.4 x10^3/uL (0.0-1.1); MONO % 5 % (0-9); NEUT # 5.3 x10^3/uL (1.8-7.7); NEUT % 76 % (31-73); PLATELET COUNT 247 x10^3/uL (140-400); RED BLOOD COUNT 5.04 x10^6/uL (3.50-5.40); RED CELL DISTRIBUTION WIDTH 14.7 % (11.5-14.5)
[2019-11-16 18:21] LABS: BACTERIA,URINE FEW /HPF (0-FEW); RBC,URINE 0 /HPF (0-2); SQUAMOUS EPITHELIAL CELL,UR MOD /LPF
[2019-11-16 18:44] LABS: CALCIUM 9.1 mg/dL (8.5-10.1); CREATININE 0.6 mg/dL (0.6-1.0); GFR 102.7; POTASSIUM 3.8 mmol/L (3.5-5.1)
[2019-11-16 18:49] LABS: ALBUMIN/GLOBULIN RATIO 1.1 (1.0-1.7); TOTAL BILIRUBIN 0.5 mg/dL (0.2-1.0); TOTAL PROTEIN 7.7 g/dL (6.4-8.2)
--- NOTE | 2019-11-16 19:16 | RAD ---
EXAM: CT ABDOMEN/PELVIS WITH CONTRAST. HISTORY: Abdominal pain. TECHNIQUE: Computed tomography of the abdomen and pelvis was performed after the intravenous administration of iodinated contrast. One or more of the following individualized dose reduction techniques were utilized for this examination: 1. Automated exposure control. 2. Adjustment of the mA and/or kV according to patient size. 3. Use of iterative reconstruction technique. COMPARISON: 06/28/2018. FINDINGS: Lung windows through the visualized portions of the bases reveal mild bronchial wall thickening and atelectasis. An uncalcified 6 mm nodule in the right costophrenic angle is unchanged chronically and likely benign. Bone windows reveal no suspicious lesions. The gallbladder is surgically absent. The common duct measures 9 mm. There is no clear cause for distal obstruction. The liver, pancreas, adrenal glands, spleen, and kidneys are unremarkable without contrast. There are no pathologically enlarged lymph nodes. The uterus is surgically absent. Sigmoid diverticulosis is moderate. Mild sigmoid wall thickening may reflect prior episodes of diverticulitis. There is no clear acute inflammation. There is no small bowel obstruction. IMPRESSION: 1. Mild sigmoid wall thickening may reflect prior episodes of diverticulitis. No clear acute inflammation or other cause for pain is identified. 2. Mild extrahepatic biliary dilatation status post cholecystectomy. Correlate for cholestasis to assess significance. 3. Mild bronchial wall thickening. Correlate for acute or chronic bronchitis. Electronically signed by: Robert Judge MD (11/16/2019 7:12 PM) GAVIN
[2019-11-16] MEDS ORDERED: CEPHALEXIN 250 MG CAPSULE. PO STA (19:27)
[2019-11-16] MEDS ORDERED: CEPH500T PO (19:34)
[2019-11-16] MEDS ORDERED: DICY20TA3 PO (19:34)
[2019-11-16] MEDS ORDERED: ONDA4TAB12 PO (19:34)
--- NOTE | 2019-11-16 19:34 | PHYS DOC ---
Past Medical History Past Medical History: Arthritis, Asthma, COPD, Diverticulitis, Fibromyalgia, Hypertension, Hypothyroid, Kidney Stone, Other Additional Past Medical Histor: CHRONIC PAIN,TENDONITIS,LITHOTRIPSY Past Surgical History: No Surgical History, Appendectomy, Cholecystectomy, Hysterectomy Alcohol Use: None Drug Use: None Adult General Chief Complaint Chief Complaint: ABDOMINAL PAIN [facility] HPI Patient is a 59 year old female with history of COPD, hypertension, asthma, fibromyalgia, arthritis, on morphine for chronic pain, cholecystectomy, appendectomy, who presents to the ED today complaining of 10 out of 10 generalized abdominal pain that began today with diarrhea and nausea. Patient denies any exacerbating or relieving factors. Reports taking Tylenol, Pepto- Bismol, morphine with no relief. She is also complaining of urinary frequency. Review of Systems Review of Systems Constitutional: Denies fever or chills [] Eyes: Denies change in visual acuity, redness, or eye pain [] HENT: Denies nasal congestion or sore throat [] Respiratory: Denies cough or shortness of breath [] Cardiovascular: No additional information not addressed in HPI [] GI: Reports abdominal pain, nausea, diarrhea, denies any vomiting, denies any hematemesis, denies any bloody stools : Reports urinary frequency Denies dysuria or hematuria [] Musculoskeletal: Denies back pain or joint pain [] Integument: Denies rash or skin lesions [] Neurologic: Denies headache, focal weakness or sensory changes [] All other systems were reviewed and found to be within normal limits, except as documented in this note. Current Medications Current Medications Current Medications Medications (Trade) Dose Ordered Sig/Faye Start Time Stop Time Status Last Admin Dose Admin Cephalexin HCl (Keflex) 500 mg 1X STAT 11/16/19 19:27 11/16/19 19:29 DC 11/16/19 20:04 500 MG Morphine Sulfate (Morphine Sulfate) 4 mg 1X ONCE 11/16/19 17:45 11/16/19 17:46 DC 11/16/19 18:09 4 MG Ondansetron HCl (Zofran) 4 mg 1X ONCE 11/16/19 17:45 11/16/19 17:46 DC 11/16/19 18:09 4 MG Sodium Chloride 1,000 ml @ 1,000 mls/hr 1X ONCE 11/16/19 17:45 11/16/19 18:44 DC 11/16/19 18:08 1,000 MLS/HR Allergies Allergies Allergies Coded Allergies Type Severity Reaction Last Updated Verified Iodine and Iodide Containing Produc Allergy Intermediate RASH 03/23/17 Yes iodine Allergy Intermediate hives 03/23/17 Yes ketorolac Adverse Reaction Intermediate confused 06/17/16 Yes tramadol Adverse Reaction Intermediate confused 06/17/16 Yes Physical Exam Physical Exam Constitutional: Well developed, well nourished, no acute distress, non-toxic appearance. [] HENT: Normocephalic, atraumatic, bilateral external ears normal, oropharynx moist, no oral exudates, nose normal. [] Eyes: PERRLA, EOMI, conjunctiva normal, no discharge. [] Neck: Normal range of motion, no tenderness, supple, no stridor. [] Cardiovascular:Heart rate regular rhythm, no murmur [] Lungs & Thorax: Bilateral breath sounds clear to auscultation [] Abdomen: Bowel sounds normal, soft, no tenderness, no masses, no pulsatile masses. [] Skin: Warm, dry, no erythema, no rash. [] Back: No tenderness, no CVA tenderness. [] Extremities: No tenderness, no cyanosis, no clubbing, ROM intact, no edema. [] Neurologic: Alert and oriented X 3, normal motor function, normal sensory function, no focal deficits noted. [] Psychologic:depressed mood. Tearful Current Patient Data Vital Signs Vital Signs Date Time Temp Pulse Resp B/P (MAP) Pulse Ox O2 Delivery O2 Flow Rate FiO2 11/16/19 18:09 18 11/16/19 17:15 98.2 101 158/84 (108) 96 Room Air 98.2 Lab Values Laboratory Tests Test 11/16/19 17:15 11/16/19 18:15 Urine Collection Type Unknown Urine Color Yellow Urine Clarity Clear Urine pH 8.0 Urine Specific [place] 1.010 Urine Protein Negative mg/dL (NEG-TRACE) Urine Glucose (UA) Negative mg/dL (NEG) Urine Ketones (Stick) Negative mg/dL (NEG) Urine Blood Negative (NEG) Urine Nitrite Negative (NEG) Urine Bilirubin Negative (NEG) Urine Urobilinogen Dipstick 0.2 mg/dL (0.2 mg/dL) Urine Leukocyte Esterase Moderate (NEG) Urine RBC 0 /HPF (0-2) Urine WBC 5-10 /HPF (0-4) Urine Squamous Epithelial Cells Mod /LPF Urine Bacteria Few /HPF (0-FEW) Urine Opiates Screen Pos (NEG) Urine Methadone Screen Neg (NEG) Urine Barbiturates Neg (NEG) Urine Phencyclidine Screen Neg (NEG) Urine Amphetamine/Methamphetamine Neg (NEG) Urine Benzodiazepines Screen Neg (NEG) Urine Cocaine Screen Neg (NEG) Urine Cannabinoids Screen Neg (NEG) Urine Ethyl Alcohol Neg (NEG) White Blood Count 7.0 x10^3/uL (4.0-11.0) Red Blood Count 5.04 x10^6/uL (3.50-5.40) Hemoglobin 14.3 g/dL (12.0-15.5) Hematocrit 43.0 % (36.0-47.0) Mean Corpuscular Volume 85 fL (79-100) Mean Corpuscular Hemoglobin 28 pg (25-35) Mean Corpuscular Hemoglobin Concent 33 g/dL (31-37) Red Cell Distribution Width 14.7 % (11.5-14.5) H Platelet Count 247 x10^3/uL (140-400) Neutrophils (%) (Auto) 76 % (31-73) H Lymphocytes (%) (Auto) 17 % (24-48) L Monocytes (%) (Auto) 5 % (0-9) Eosinophils (%) (Auto) 1 % (0-3) Basophils (%) (Auto) 1 % (0-3) Neutrophils # (Auto) 5.3 x10^3/uL (1.8-7.7) Lymphocytes # (Auto) 1.2 x10^3/uL (1.0-4.8) Monocytes # (Auto) 0.4 x10^3/uL (0.0-1.1) Eosinophils # (Auto) 0.1 x10^3/uL (0.0-0.7) Basophils # (Auto) 0.1 x10^3/uL (0.0-0.2) Sodium Level 145 mmol/L (136-145) Potassium Level 3.8 mmol/L (3.5-5.1) Chloride Level 107 mmol/L (98-107) Carbon Dioxide Level 29 mmol/L (21-32) Anion Gap 9 (6-14) Blood Urea Nitrogen 4 mg/dL (7-20) L Creatinine 0.6 mg/dL (0.6-1.0) Estimated GFR (Cockcroft-Gault) 102.7 BUN/Creatinine Ratio 7 (6-20) Glucose Level 94 mg/dL (70-99) Calcium Level 9.1 mg/dL (8.5-10.1) Total Bilirubin 0.5 mg/dL (0.2-1.0) Aspartate Amino Transferase (AST) 11 U/L (15-37) L Alanine Aminotransferase (ALT) 13 U/L (14-59) L Alkaline Phosphatase 93 U/L (46-116) Total Protein 7.7 g/dL (6.4-8.2) Albumin 4.0 g/dL (3.4-5.0) Albumin/Globulin Ratio 1.1 (1.0-1.7) Lipase 131 U/L (73-393) Ethyl Alcohol Level < 10 mg/dL (0-10) Laboratory Tests 11/16/19 18:15 Laboratory Tests 11/16/19 18:15 EKG EKG [] Radiology/Procedures Radiology/Procedures []PROCEDURE: CT ABDOMEN PELVIS WO CONTRAST EXAM: CT ABDOMEN/PELVIS WITH CONTRAST. HISTORY: Abdominal pain. TECHNIQUE: Computed tomography of the abdomen and pelvis was performed after the intravenous administration of iodinated contrast. One or more of the following individualized dose reduction techniques were utilized for this examination: 1. Automated exposure control. 2. Adjustment of the mA and/or kV according to patient size. 3. Use of iterative reconstruction technique. COMPARISON: 06/28/2018. FINDINGS: Lung windows through the visualized portions of the bases reveal mild bronchial wall thickening and atelectasis. An uncalcified 6 mm nodule in the right costophrenic angle is unchanged chronically and likely benign. Bone windows reveal no suspicious lesions. The gallbladder is surgically absent. The common duct measures 9 mm. There is no clear cause for distal obstruction. The liver, pancreas, adrenal glands, spleen, and kidneys are unremarkable without contrast. There are no pathologically enlarged lymph nodes. The uterus is surgically absent. Sigmoid diverticulosis is moderate. Mild sigmoid wall thickening may reflect prior episodes of diverticulitis. There is no clear acute inflammation. There is no small bowel obstruction. IMPRESSION: 1. Mild sigmoid wall thickening may reflect prior episodes of diverticulitis. No clear acute inflammation or other cause for pain is identified. 2. Mild extrahepatic biliary dilatation status post cholecystectomy. Correlate for cholestasis to assess significance. 3. Mild bronchial wall thickening. Correlate for acute or chronic bronchitis. Electronically signed by: Robert Judge MD (11/16/2019 7:12 PM) [id number] DICTATED and SIGNED BY: ELVER JUDGE MD DATE: 11/16/191911 Course & Med Decision Making Course & Med Decision Making Pertinent Labs and Imaging studies reviewed. (See chart for details) This is a 59-year-old female patient presenting to the ED today complaining of generalized abdominal pain with diarrhea nausea and urinary frequency since this morning. Urine analysis is noted for large amount of leukocytes, CBC with normal WBC, normal hemoglobin and hematocrit. CMP with no acute findings. CT of the abdomen and pelvic was negative for any acute findings. Discharged to home on cephalexin, first dose given in the ED. Follow-up with PCP next week Dragon Disclaimer Dragon Disclaimer This electronic medical record was generated, in whole or in part, using a voice recognition dictation system. Departure Departure Impression: Primary Impression: UTI (urinary tract infection) Additional Impressions: Diarrhea Abdominal pain Nausea alone Disposition: HOME, SELF-CARE Condition: STABLE Referrals: ABHIJIT GOLDSTEIN MD (PCP) follow up on Monday Patient Instructions: Abdominal Pain, Urinary Tract Infection Additional Instructions: You were evaluated in the emergency room for abdominal pain, nausea and diarrhea, your CAT scan of the abdomen and pelvic was negative for any acute findings. Your urine was positive for infection. We put you on antibiotics, ensure you complete them. You can take your own pain medicine at home. Take the rest of the prescribed medications as ordered. Follow-up with your doctor in the course of next week. Scripts Dicyclomine Hcl (DICYCLOMINE HCL) 20 Mg Tablet 1 TAB PO TID, #30 TAB 0 Refills Prov: MUTUNGARONAN ENDOSCOPY TECHNICAN 11/16/19 Ondansetron (ONDANSETRON ODT) 4 Mg Tab.rapdis 1 TAB PO PRN Q6-8HRS, #16 TAB Prov: MUTUNGA,RONAN ENDOSCOPY TECHNICAN 11/16/19 Cephalexin (CEPHALEXIN) 500 Mg Tablet 1 TAB PO BID, #14 TAB Prov: MUTUNGARONAN ENDOSCOPY TECHNICAN 11/16/19 Problem Qualifiers Primary Impression: UTI (urinary tract infection) Urinary tract infection type: site unspecified Hematuria presence: without hematuria Qualified Codes: N39.0 - Urinary tract infection, site not specified Additional Impressions: Diarrhea Diarrhea type: unspecified type Qualified Codes: R19.7 - Diarrhea, unspecified Abdominal pain Abdominal location: generalized Qualified Codes: R10.84 - Generalized abdominal pain RONAN NICOLE APRN Nov 16, 2019 19:34
== END 2019-11-16 19:59 | disposition home or self-care (01) ==
LOC: ER 17:03
DX: N39.0 Urinary tract infection, site not specified (principal); R19.7 Diarrhea, unspecified; J44.9 Chronic obstructive pulmonary disease, unspecified; I10 Essential (primary) hypertension; E03.9 Hypothyroidism, unspecified; G89.29 Other chronic pain; Z87.442 Personal history of urinary calculi; Z90.89 Acquired absence of other organs; Z90.49 Acquired absence of other specified parts of digestive tract; Z90.710 Acquired absence of both cervix and uterus; Z91.041 Radiographic dye allergy status; Z88.6 Allergy status to analgesic agent; Z88.8 Allergy status to other drugs, medicaments and biological substances
CPT/HCPCS: 36415; 74176; 80053; 80307; 81001; 83690; 85025; 87086; 96374; 96375; 99285; G0480; J2270; J2405; J7030

== ENCOUNTER 2019-11-30 17:57 | Emergency (ER) | payer OTHER ==
[~2019-11-30] VITALS: Ht 160 cm; Wt 90.0 kg
[~2019-11-30 17:57] MED LIST changes: +CEPH500T PO; +DICY20TA3 PO; +ONDA4TAB12 PO
[2019-11-30 18:19] LABS: BILIRUBIN,URINE NEGATIVE (NEG); CLARITY,URINE CLEAR; COLOR,URINE YELLOW; NITRITE,URINE NEGATIVE (NEG); PH,URINE 7.5; PROTEIN,URINE NEGATIVE (NEG-TRACE); UROBILINOGEN,URINE 0.2 mg/dL (0.2 mg/dL)
[2019-11-30 18:37] LABS: BACTERIA,URINE 0 /HPF (0-FEW); RBC,URINE 0 /HPF (0-2); SQUAMOUS EPITHELIAL CELL,UR FEW /LPF
[2019-11-30 19:27] LABS: BASO # 0.1 x10^3/uL (0.0-0.2); BASO % 1 % (0-3); EOS # 0.3 x10^3/uL (0.0-0.7); EOS % 5 % (0-3); HEMATOCRIT 42.7 % (36.0-47.0); HEMOGLOBIN 14.1 g/dL (12.0-15.5); LYMPH # 1.9 x10^3/uL (1.0-4.8); LYMPH % 27 % (24-48); MEAN CORPUSCULAR HEMOGLOBIN 29 pg (25-35); MEAN CORPUSCULAR HGB CONC 33 g/dL (31-37); MEAN CORPUSCULAR VOLUME 87 fL (79-100); MONO # 0.4 x10^3/uL (0.0-1.1); MONO % 6 % (0-9); NEUT # 4.4 x10^3/uL (1.8-7.7); NEUT % 61 % (31-73); PLATELET COUNT 260 x10^3/uL (140-400); RED BLOOD COUNT 4.92 x10^6/uL (3.50-5.40); RED CELL DISTRIBUTION WIDTH 14.4 % (11.5-14.5); WHITE BLOOD COUNT 7.2 x10^3/uL (4.0-11.0)
[2019-11-30 19:40] LABS: CALCIUM 9.3 mg/dL (8.5-10.1); CREATININE 0.7 mg/dL (0.6-1.0); GFR 85.9; POTASSIUM 4.1 mmol/L (3.5-5.1)
--- NOTE | 2019-11-30 19:44 | RAD ---
Exam: CT abdomen and pelvis without contrast INDICATION: Left flank pain TECHNIQUE: Sequential axial images through the abdomen and pelvis obtained without IV contrast. Sagittal and coronal reformatted images were reconstructed from the axial data and reviewed. Comparisons: 11/16/2019 FINDINGS: Heart size is normal. No pericardial effusion. Mild bronchial wall thickening noted at the lung bases. There is a 6 mm nodule in the right lower lobe series 2 image 26. Liver, spleen, pancreas and adrenals are unremarkable. Gallbladder is surgically absent. Several nonobstructing right renal calculi are noted. No ureteral calculi. No perinephric inflammation or hydronephrosis. Bladder is partially distended and appears thin-walled. Uterus is absent. No abnormal adnexal mass. Few scattered diverticula noted within the descending and sigmoid colon without evidence of acute diverticulitis. Remainder of the large and small bowel are unremarkable. No free intra-abdominal air or fluid. No obstruction. Abdominal aorta has a normal course and caliber. No enlarged abdominal lymph nodes are identified. No suspicious osseous lesions or acute fractures. IMPRESSION: 1. No ureteral calculi or evidence for obstructive uropathy. 2. Several nonobstructing right renal calculi. 3. Mild bronchial thickening, can be seen in setting of bronchitis. 4. Diverticulosis without evidence of acute diverticulitis. 5. A 6 mm nodule in the right lower lobe. In a low-risk patient no further follow-up imaging is recommended. In a high-risk patient and optional one-year follow-up CT performed. Exposure: One or more of the following in the visualized dose reduction techniques were utilized for this examination: 1. Automated exposure control 2. Adjustment of the MA and/or KV according to patient size 3. Use of iterative of reconstructive technique Electronically signed by: Jj Cabrera MD (11/30/2019 7:41 PM) [id number]
[2019-11-30 19:45] LABS: ALBUMIN 4.3 g/dL (3.4-5.0); ALBUMIN/GLOBULIN RATIO 1.1 (1.0-1.7); TOTAL BILIRUBIN 0.3 mg/dL (0.2-1.0); TOTAL PROTEIN 8.1 g/dL (6.4-8.2)
--- NOTE | 2019-11-30 19:50 | PHYS DOC ---
Past Medical History Past Medical History: Arthritis, Asthma, COPD, Diverticulitis, Fibromyalgia, Hypertension, Hypothyroid, Kidney Stone, Other Additional Past Medical Histor: CHRONIC PAIN,TENDONITIS,LITHOTRIPSY (NICK ESCOBEDO APRN) Past Surgical History: No Surgical History, Appendectomy, Cholecystectomy, Hysterectomy (NICK ESCOBEDO APRN) Smoking Status: Never Smoker Alcohol Use: None Drug Use: None (NICK ESCOBEDO APRN) Attending Signature I have participated in the care of this patient and I have reviewed and agree with all pertinent clinical information above including history, exam, and recommendations. (CORNELIUS BARKSDALE MD) Adult General Chief Complaint Chief Complaint: FLANK PAIN HPI HPI Patient is a 59 year old female who presents to the emergency department with complaints of continued burning with urination. Patient states she was seen here on November 16, 2019 was prescribed doxycycline. She finished taking that medication however the burning sensation with urination continues. Patient states that she feels like she has a kidney stone, she reports increased urinary frequency, blood in her urine, and left flank pain. She describes the pain is sharp and stabbing in nature. She currently denies any vomiting, diarrhea, numbness, tingling, weakness, headache, or fatigue. She states she had a bit of dry cough. She denies any shortness of breath or wheezing. The patient currently rates her pain a 10 on the pain scale and describes it as a throbbing sensation in her left flank area, ports that the pain in her flank worsens with movement but denies any numbness, tingling, or weakness of her lower left extremity. (NICK ESCOBEDO APRN) Review of Systems Review of Systems All other ROS is negative unless otherwise noted in HPI. (NICK ESCOBEDO APRN) Current Medications Current Medications Current Medications Medications (Trade) Dose Ordered Sig/Faye Start Time Stop Time Status Last Admin Dose Admin Orphenadrine Citrate (Norflex) 60 mg 1X ONCE 11/30/19 20:00 11/30/19 20:01 DC 11/30/19 20:07 60 MG Phenazopyridine HCl (Pyridium) 200 mg STK-MED ONCE 11/30/19 20:37 11/30/19 20:37 DC (CORNELIUS BARKSDALE MD) Allergies Allergies Allergies Coded Allergies Type Severity Reaction Last Updated Verified Iodine and Iodide Containing Produc Allergy Intermediate RASH 03/23/17 Yes iodine Allergy Intermediate hives 03/23/17 Yes ketorolac Adverse Reaction Intermediate confused 06/17/16 Yes tramadol Adverse Reaction Intermediate confused 06/17/16 Yes (CORNELIUS BARKSDALE MD) Physical Exam Physical Exam See Above Constitutional: Well developed, well nourished, no acute distress, non-toxic appearance obese. [] HENT: Normocephalic, atraumatic, bilateral external ears normal, oropharynx moist, no oral exudates, nose normal. [] Eyes: PERRLA, EOMI, conjunctiva normal, no discharge. [] Neck: Normal range of motion, no stridor. [] Cardiovascular:Heart rate regular rhythm, no murmur [] Lungs & Thorax: Bilateral breath sounds clear to auscultation, Respirations even and unlabored, no retractions, no respiratory distress [] Abdomen: Bowel sounds normal, soft, no tenderness, no masses, no pulsatile masses. [] Skin: Warm, dry, no erythema, no rash. [] Back: No CVA tenderness. [] Extremities: No cyanosis, ROM intact Neurologic: Alert and oriented X 3, no focal deficits noted. [] Psychologic: Affect normal, judgement normal, mood normal. [] (NICK ESCOBEDO APRN) Current Patient Data Vital Signs Vital Signs Date Time Temp Pulse Resp B/P (MAP) Pulse Ox O2 Delivery O2 Flow Rate FiO2 11/30/19 20:22 84 165/82 (109) 95 Room Air 11/30/19 18:30 98.3 16 98.3 (CORNELIUS BARKSDALE MD) Lab Values Laboratory Tests Test 11/30/19 18:00 11/30/19 19:09 Urine Collection Type Unknown Urine Color Yellow Urine Clarity Clear Urine pH 7.5 Urine Specific [place]ona 1.010 Urine Protein Negative mg/dL (NEG-TRACE) Urine Glucose (UA) Negative mg/dL (NEG) Urine Ketones (Stick) Negative mg/dL (NEG) Urine Blood Negative (NEG) Urine Nitrite Negative (NEG) Urine Bilirubin Negative (NEG) Urine Urobilinogen Dipstick 0.2 mg/dL (0.2 mg/dL) Urine Leukocyte Esterase Trace (NEG) Urine RBC 0 /HPF (0-2) Urine WBC 1-4 /HPF (0-4) Urine Squamous Epithelial Cells Few /LPF Urine Bacteria 0 /HPF (0-FEW) Urine Mucus Slight /LPF White Blood Count 7.2 x10^3/uL (4.0-11.0) Red Blood Count 4.92 x10^6/uL (3.50-5.40) Hemoglobin 14.1 g/dL (12.0-15.5) Hematocrit 42.7 % (36.0-47.0) Mean Corpuscular Volume 87 fL (79-100) Mean Corpuscular Hemoglobin 29 pg (25-35) Mean Corpuscular Hemoglobin Concent 33 g/dL (31-37) Red Cell Distribution Width 14.4 % (11.5-14.5) Platelet Count 260 x10^3/uL (140-400) Neutrophils (%) (Auto) 61 % (31-73) Lymphocytes (%) (Auto) 27 % (24-48) Monocytes (%) (Auto) 6 % (0-9) Eosinophils (%) (Auto) 5 % (0-3) H Basophils (%) (Auto) 1 % (0-3) Neutrophils # (Auto) 4.4 x10^3/uL (1.8-7.7) Lymphocytes # (Auto) 1.9 x10^3/uL (1.0-4.8) Monocytes # (Auto) 0.4 x10^3/uL (0.0-1.1) Eosinophils # (Auto) 0.3 x10^3/uL (0.0-0.7) Basophils # (Auto) 0.1 x10^3/uL (0.0-0.2) Sodium Level 142 mmol/L (136-145) Potassium Level 4.1 mmol/L (3.5-5.1) Chloride Level 103 mmol/L (98-107) Carbon Dioxide Level 31 mmol/L (21-32) Anion Gap 8 (6-14) Blood Urea Nitrogen 9 mg/dL (7-20) Creatinine 0.7 mg/dL (0.6-1.0) Estimated GFR (Cockcroft-Gault) 85.9 BUN/Creatinine Ratio 13 (6-20) Glucose Level 92 mg/dL (70-99) Calcium Level 9.3 mg/dL (8.5-10.1) Total Bilirubin 0.3 mg/dL (0.2-1.0) Aspartate Amino Transferase (AST) 13 U/L (15-37) L Alanine Aminotransferase (ALT) 6 U/L (14-59) L Alkaline Phosphatase 97 U/L (46-116) Total Protein 8.1 g/dL (6.4-8.2) Albumin 4.3 g/dL (3.4-5.0) Albumin/Globulin Ratio 1.1 (1.0-1.7) Laboratory Tests 11/30/19 19:09 Laboratory Tests 11/30/19 19:09 (CORNELIUS BARKSDALE MD) EKG EKG [] (NICK ESCOBEDO APRN) Radiology/Procedures Radiology/Procedures PROCEDURE: CT ABDOMEN PELVIS WO CONTRAST Exam: CT abdomen and pelvis without contrast INDICATION: Left flank pain TECHNIQUE: Sequential axial images through the abdomen and pelvis obtained without IV contrast. Sagittal and coronal reformatted images were reconstructed from the axial data and reviewed. Comparisons: 11/16/2019 FINDINGS: Heart size is normal. No pericardial effusion. Mild bronchial wall thickening noted at the lung bases. There is a 6 mm nodule in the right lower lobe series 2 image 26. Liver, spleen, pancreas and adrenals are unremarkable. Gallbladder is surgically absent. Several nonobstructing right renal calculi are noted. No ureteral calculi. No perinephric inflammation or hydronephrosis. Bladder is partially distended and appears thin-walled. Uterus is absent. No abnormal adnexal mass. Few scattered diverticula noted within the descending and sigmoid colon without evidence of acute diverticulitis. Remainder of the large and small bowel are unremarkable. No free intra-abdominal air or fluid. No obstruction. Abdominal aorta has a normal course and caliber. No enlarged abdominal lymph nodes are identified. No suspicious osseous lesions or acute fractures. IMPRESSION: 1. No ureteral calculi or evidence for obstructive uropathy. 2. Several nonobstructing right renal calculi. 3. Mild bronchial thickening, can be seen in setting of bronchitis. 4. Diverticulosis without evidence of acute diverticulitis. 5. A 6 mm nodule in the right lower lobe. In a low-risk patient no further follow-up imaging is recommended. In a high-risk patient and optional one-year follow-up CT performed. [] (NICK ESCOBEDO APRN) Course & Med Decision Making Course & Med Decision Making Pertinent Labs and Imaging studies reviewed. (See chart for details) Patient is a 59-year-old female who presented to the emergency room with continued increased urinary frequency, dysuria, and left flank pain after completing antibiotics for a recent kidney infection. Patient reported concerns that she had a kidney stone causing her pain. CBC, CMP were both unremarkable, UA was negative for blood or red blood cells with 1-4 WBC, no nitrites, no bacteria CT abdomen and pelvis revealed no ureteral calculi or evidence of obstructive uropathy she did continue to have several nonobstructing renal calculi on the right. I advised patient of these normal findings. Patient was given a prescription for Pyridium. She was encouraged follow-up with her primary care doctor or urologist for further evaluation of ongoing discomfort with urination. [] (NICK ESCOBEDO APRN) Dragon Disclaimer Dragon Disclaimer This electronic medical record was generated, in whole or in part, using a voice recognition dictation system. (NICK ESCOBEDO APRN) Departure Departure Impression: Primary Impression: Dysuria Disposition: HOME, SELF-CARE Condition: STABLE Referrals: ABHIJIT GOLDSTEIN MD (PCP) Patient Instructions: Dysuria Additional Instructions: Fill prescription(s) and use as directed. Avoid bladder irritants such as caffeine, carbonation, and spicy foods. Increase clear fluids. Follow up with your primary care doctor or a urologist for further evaluation of this ongoing problem. Return to the ER if symptoms worsen. Scripts Phenazopyridine Hcl (PYRIDIUM) 100 Mg Tablet 1 TAB PO TID for urinary discomfort for 5 Days, #15 TAB 0 Refills Prov: NICK ESCOBEDO APRN 11/30/19 NICK ESCOBEDO APRN Nov 30, 2019 19:50 CORNELIUS BARKSDALE MD Dec 01, 2019 04:50
[2019-11-30] MEDS ORDERED: ORPHENADRINE CITRATE 60 MG/2 ML VIAL. IV ONE (20:00)
[2019-11-30] MEDS ORDERED: PHEN100T82 PO (20:21)
[2019-11-30 20:22] VITALS: BP 165/82
[2019-11-30] MEDS ORDERED: PHENAZOPYRIDINE 200 MG TABLET. ONE (20:37)
[2019-11-30] MEDS ORDERED: PHENAZOPYRIDINE 200 MG TABLET. PO ONE (21:00)
== END 2019-11-30 20:38 | disposition home or self-care (01) ==
LOC: ER 17:57
DX: R30.0 Dysuria (principal); J44.9 Chronic obstructive pulmonary disease, unspecified; I10 Essential (primary) hypertension; E03.9 Hypothyroidism, unspecified; G89.29 Other chronic pain; Z90.49 Acquired absence of other specified parts of digestive tract; Z90.710 Acquired absence of both cervix and uterus; Z90.89 Acquired absence of other organs; Z88.8 Allergy status to other drugs, medicaments and biological substances; Z88.2 Allergy status to sulfonamides; Z88.6 Allergy status to analgesic agent; Z91.041 Radiographic dye allergy status
CPT/HCPCS: 36415; 74176; 80053; 81001; 85025; 87086; 96374; 99284; J2360

== ENCOUNTER → 2019-12-18 | Outpatient (CLI) | payer OTHER ==
[2019-11-30 20:22] VITALS: BP 165/82
[~2019-12-18] MED LIST changes: +ALBU2.5V8 INH; +PHEN100T82 PO
--- NOTE | 2019-12-18 16:47 | RAD ---
PROCEDURE: KUB STUDY DATE: 12/18/2019 CLINICAL INDICATION / HISTORY: Calculus of kidney. Patient complains of right-sided abdominal pain.. TECHNIQUE: Single AP image of the abdomen was obtained. COMPARISON: 11/30/[address] without IV contrast. FINDINGS: A nonobstructive bowel gas pattern is present. No organomegaly or pathologic calcifications are identified. In particular, the punctate calcification in the right kidney shown on CT is not as apparent by x-ray. No acute osseous abnormality. Cholecystectomy clips. Moderate stool throughout the visualized large bowel. IMPRESSION: Status post cholecystectomy with no radiographically apparent kidney stones noted. Moderate stool throughout the visualized large bowel. Electronically signed by: Adrián Torres MD (12/18/2019 4:44 PM) [id number]
== END ==
LOC: RAD 14:40
PROVIDERS: ATTEND Urology
DX: N28.89 Other specified disorders of kidney and ureter (principal); Z90.49 Acquired absence of other specified parts of digestive tract
CPT/HCPCS: 74018

== ENCOUNTER 2019-12-22 19:46 | Emergency (ER) | payer OTHER ==
[~2019-12-22] VITALS: Ht 157.5 cm; Wt 90.0 kg
[~2019-12-22 19:46] MED LIST changes: -ALBU2.5V8 INH
[2019-12-22 20:15] VITALS: BP 148/71
--- NOTE | 2019-12-22 21:04 | RAD ---
CHEST PA LATERAL History: Cough Comparison: July 05, 2010 Findings: 2 views of the chest are submitted. There is no infiltrate, pneumothorax, or effusion. Pericardial cardiac silhouette is stable. There is likely degree of emphysema. Impression: 1. There is no significant infiltrate. There is likely degree of emphysema. Electronically signed by: Ej Seals MD (12/22/2019 9:01 PM) [id number]
[2019-12-22] MEDS ORDERED: IPRATRPIUM/ALBUTEROL 0.5/2.5MG 3 ML NEBU. NEB ONE (21:15)
[2019-12-22 21:24] LABS: INFLUENZA A PATIENT NEGATIVE (NEGATIVE); INFLUENZA B PATIENT NEGATIVE (NEGATIVE)
[2019-12-22] MEDS ORDERED: BENZ100C PO (21:50)
[2019-12-22] MEDS ORDERED: ALBU2.5V8 INH (21:50)
--- NOTE | 2019-12-22 21:51 | PHYS DOC ---
Past Medical History Past Medical History: Arthritis, Asthma, COPD, Diverticulitis, Fibromyalgia, Hypertension, Hypothyroid, Kidney Stone, Other Additional Past Medical Histor: CHRONIC PAIN,TENDONITIS,LITHOTRIPSY Past Surgical History: No Surgical History, Appendectomy, Cholecystectomy, Hysterectomy Smoking Status: Never Smoker Alcohol Use: None Drug Use: None Adult General Chief Complaint Chief Complaint: FLU SYMPTOM HPI HPI Patient is a 59 year old female with history of asthma, hypertension, COPD, fibromyalgia, who presents to the ED today complaining of productive cough, sore throat, body aches and chills, symptoms began yesterday. Patient denies any actual fever. Denies any chest pain or shortness of breath. Review of Systems Review of Systems Constitutional: Reports body aches. Denies fever or chills [] Eyes: Denies change in visual acuity, redness, or eye pain [] HENT: Reports sore throat. Denies nasal congestion Respiratory: Reports cough, denies shortness of breath [] Cardiovascular: No additional information not addressed in HPI [] GI: Denies abdominal pain, nausea, vomiting, bloody stools or diarrhea [] : Denies dysuria or hematuria [] Musculoskeletal: Denies back pain or joint pain [] Integument: Denies rash or skin lesions [] Neurologic: Denies headache, focal weakness or sensory changes [] All other systems were reviewed and found to be within normal limits, except as documented in this note. Current Medications Current Medications Current Medications Medications (Trade) Dose Ordered Sig/Faye Start Time Stop Time Status Last Admin Dose Admin Albuterol/ Ipratropium (Duoneb) 3 ml 1X ONCE 12/22/19 21:15 12/22/19 21:16 DC 12/22/19 21:36 3 ML Allergies Allergies Allergies Coded Allergies Type Severity Reaction Last Updated Verified Iodine and Iodide Containing Produc Allergy Intermediate RASH 03/23/17 Yes iodine Allergy Intermediate hives 03/23/17 Yes Sulfa (Sulfonamide Antibiotics) Allergy Unknown 12/22/19 Yes ibuprofen Allergy Unknown 12/22/19 Yes ketorolac Adverse Reaction Intermediate confused 06/17/16 Yes tramadol Adverse Reaction Intermediate confused 06/17/16 Yes Physical Exam Physical Exam Constitutional: Well developed, well nourished, no acute distress, non-toxic appearance. [] HENT: Normocephalic, atraumatic, bilateral external ears normal, oropharynx moist, no oral exudates, nose normal. [] Eyes: PERRLA, EOMI, conjunctiva normal, no discharge. [] Neck: Normal range of motion, no tenderness, supple, no stridor. [] Cardiovascular:Heart rate regular rhythm, no murmur [] Lungs & Thorax: Bilateral breath sounds clear to auscultation [] Abdomen: Bowel sounds normal, soft, no tenderness, no masses, no pulsatile masses. [] Skin: Warm, dry, no erythema, no rash. [] Back: No tenderness, no CVA tenderness. [] Extremities: No tenderness, no cyanosis, no clubbing, ROM intact, no edema. [] Neurologic: Alert and oriented X 3, normal motor function, normal sensory function, no focal deficits noted. [] Psychologic: Affect normal, judgement normal, mood normal. [] Current Patient Data Vital Signs Vital Signs Date Time Temp Pulse Resp B/P (MAP) Pulse Ox O2 Delivery O2 Flow Rate FiO2 12/22/19 21:37 96 Room Air 12/22/19 20:15 98.2 101 16 148/71 (96) 98.2 Lab Values Laboratory Tests Test 12/22/19 20:52 Influenza Type A Antigen Negative (NEGATIVE) Influenza Type B Antigen Negative (NEGATIVE) EKG EKG [] Radiology/Procedures Radiology/Procedures []PROCEDURE: CHEST PA & LATERAL CHEST PA LATERAL History: Cough Comparison: July 05, 2010 Findings: 2 views of the chest are submitted. There is no infiltrate, pneumothorax, or effusion. Pericardial cardiac silhouette is stable. There is likely degree of emphysema. Impression: 1. There is no significant infiltrate. There is likely degree of emphysema. Electronically signed by: Jude Gunn MD (12/22/2019 9:01 PM) [id number] DICTATED and SIGNED BY: JUDE GUNN MD DATE: 12/22/192100 Course & Med Decision Making Course & Med Decision Making Pertinent Labs and Imaging studies reviewed. (See chart for details) This is a 59-year-old female patient presenting to the ED today complaining of cough, sore throat, body aches, chills, symptoms began yesterday. Chest x-ray interpreted by radiologist as negative for any acute findings noted for emphysema, negative influenza A/B. Discharge to home with albuterol inhaler, patient refused prednisone. Given prescription for Tessalon Perles. Other supportive care measures recommended. Follow-up with primary care doctor in 1 to 2 weeks Claudette Disclaimer Claudette Disclaimer This electronic medical record was generated, in whole or in part, using a voice recognition dictation system. Departure Departure Impression: Primary Impression: Emphysema lung Additional Impression: Bronchitis Disposition: 01 HOME, SELF-CARE Condition: STABLE Referrals: ABHIJIT GOLDSTEIN MD (PCP) follow up in the course of this week Patient Instructions: Acute Bronchitis, [id number] Additional Instructions: You were evaluated in the emergency room, your chest x-ray is negative for any acute findings, you were noted to have emphysema. Your influenza test is negative. Please take the prescribed medications as ordered. Follow-up with your doctor in the course of this week. Scripts Albuterol Sulfate (Proair Hfa) 8.5 Gm Hfa.aer.ad 1 PUFF INH PRN Q6HRS PRN for SHORTNESS OF BREATH, #1 INHALER Prov: RONAN NICOLE APRN 12/22/19 Benzonatate (TESSALON PERLE) 100 Mg Capsule 1 CAP PO TID, #30 CAP Prov: RONAN NICOLE APRN 12/22/19 Problem Qualifiers Primary Impression: Emphysema lung Emphysema type: unspecified Qualified Codes: J43.9 - Emphysema, unspecified RONAN NICOLE APRN Dec 22, 2019 21:50
== END 2019-12-22 21:56 | disposition home or self-care (01) ==
LOC: ER 19:46
DX: J43.8 Other emphysema (principal); I10 Essential (primary) hypertension; E03.9 Hypothyroidism, unspecified; G89.29 Other chronic pain; Z88.2 Allergy status to sulfonamides; Z88.6 Allergy status to analgesic agent; Z91.041 Radiographic dye allergy status; Z88.8 Allergy status to other drugs, medicaments and biological substances
CPT/HCPCS: 71046; 87804; 94640; 99284-25

== ENCOUNTER → 2020-12-30 | Outpatient (CLI) | payer OTHER ==
[~2020-12-30] MED LIST changes: +ALBU2.5V8 INH
[2020-12-30 16:49] LABS: BASO # 0.1 x10^3/uL (0.0-0.2); BASO % 1 % (0-3); EOS # 0.5 x10^3/uL (0.0-0.7); EOS % 6 % (0-3); HEMATOCRIT 41.2 % (36.0-47.0); HEMOGLOBIN 14.1 g/dL (12.0-15.5); LYMPH # 1.4 x10^3/uL (1.0-4.8); LYMPH % 17 % (24-48); MEAN CORPUSCULAR HEMOGLOBIN 29 pg (25-35); MEAN CORPUSCULAR HGB CONC 34 g/dL (31-37); MEAN CORPUSCULAR VOLUME 86 fL (79-100); MONO # 0.6 x10^3/uL (0.0-1.1); MONO % 7 % (0-9); NEUT % 69 % (31-73); PLATELET COUNT 285 x10^3/uL (140-400); RED BLOOD COUNT 4.78 x10^6/uL (3.50-5.40); WHITE BLOOD COUNT 8.7 x10^3/uL (4.0-11.0)
[2020-12-30 17:11] LABS: ALBUMIN 3.7 g/dL (3.4-5.0); ALBUMIN/GLOBULIN RATIO 0.9 (1.0-1.7); CALCIUM 8.8 mg/dL (8.5-10.1); CREATININE 0.7 mg/dL (0.6-1.0); GFR 85.6; POTASSIUM 3.8 mmol/L (3.5-5.1); TOTAL BILIRUBIN 0.3 mg/dL (0.2-1.0); TOTAL PROTEIN 7.8 g/dL (6.4-8.2)
== END ==
LOC: LAB 16:09
PROVIDERS: ATTEND Pediatrics
DX: D49.2 Neoplasm of unspecified behavior of bone, soft tissue, and skin (principal)
CPT/HCPCS: 36415; 80053; 85025

== ENCOUNTER 2021-03-30 15:09 | Emergency (ER) | payer OTHER ==
[~2021-03-30] VITALS: Ht 157.5 cm; Wt 88.6 kg
[2021-03-30 15:11] VITALS: BP 124/72
--- NOTE | 2021-03-30 15:42 | PHYS DOC ---
Past Medical History Past Medical History: Arthritis, Asthma, COPD, Diverticulitis, Fibromyalgia, Hypertension, Hypothyroid, Kidney Stone, Other Additional Past Medical Histor: CHRONIC PAIN,TENDONITIS,LITHOTRIPSY (RONAN NICOLE PROFILE TRIMMER) Past Surgical History: No Surgical History, Appendectomy, Cholecystectomy, Hysterectomy (RONAN NICOLE PROFILE TRIMMER) Smoking Status: Never Smoker Alcohol Use: None Drug Use: None (RONAN NICOLE APRN) General Adult EDM: Chief Complaint: COUGH HPI: HPI: Patient is a 60 year old female with a history of COPD, fibromyalgia, hypertension, asthma among other illnesses who presents to the ED today complaining of productive cough with nasal congestion and nausea, symptoms began 5 days ago. Patient is also complaining of sore throat. She states several family members have similar symptoms "it is just a bad virus". Denies any fever. (RONAN NICOLE PROFILE TRIMMER) Review of Systems: Review of Systems: Constitutional: Denies fever or chills. [] Eyes: Denies change in visual acuity. [] HENT: Reports nasal congestion. Sore throat. [] Respiratory: Reports cough, denies shortness of breath. [] Cardiovascular: Denies chest pain or edema. [] GI: Reports nausea. Denies abdominal pain, vomiting, bloody stools or diarrhea. [] : Denies dysuria. [] Musculoskeletal: Denies back pain or joint pain. [] Integument: Denies rash. [] Neurologic: Denies headache, focal weakness or sensory changes. [] Psychiatric: Denies depression or anxiety. [] (RONAN NICOLE PROFILE TRIMMER) Heart Score: C/O Chest Pain: N/A Risk Factors: Risk Factors: DM, Current or recent (<one month) smoker, HTN, HLP, family history of CAD, obesity. Risk Scores: Score 0 - 3: 2.5% MACE over next 6 weeks - Discharge Home Score 4 - 6: 20.3% MACE over next 6 weeks - Admit for Clinical Observation Score 7 - 10: 72.7% MACE over next 6 weeks - Early Invasive Strategies (RONAN NICOLE PROFILE TRIMMER) Allergies: Allergies: Allergies Coded Allergies Type Severity Reaction Last Updated Verified Iodine and Iodide Containing Produc Allergy Intermediate RASH 03/23/17 Yes iodine Allergy Intermediate hives 6/8/17 Yes Sulfa (Sulfonamide Antibiotics) Allergy Unknown 12/22/19 Yes ibuprofen Allergy Unknown 12/22/19 Yes ketorolac Adverse Reaction Intermediate confused 06/17/16 Yes tramadol Adverse Reaction Intermediate confused 06/17/16 Yes (RONAN NICOLE APRN) Physical Exam: PE: Constitutional: Well developed, well nourished, no acute distress, non-toxic appearance. [] HENT: Normocephalic, atraumatic, bilateral external ears normal, oropharynx moist, no oral exudates, nose normal. [] Eyes: PERRLA, EOMI, conjunctiva normal, no discharge. [] Neck: Normal range of motion, no tenderness, supple, no stridor. [] Cardiovascular:Heart rate regular rhythm, no murmur [] Lungs & Thorax: Bilateral breath sounds clear to auscultation [] Abdomen: Bowel sounds normal, soft, no tenderness, no masses, no pulsatile masses. [] Skin: Warm, dry, no erythema, no rash. [] Back: No tenderness, no CVA tenderness. [] Extremities: No tenderness, no cyanosis, no clubbing, ROM intact, no edema. [] Neurologic: Alert and oriented X 3, normal motor function, normal sensory function, no focal deficits noted. [] Psychologic: Affect normal, judgement normal, mood normal. [] (RONAN NICOLE APRN) EKG: EKG: [] (RONAN NICOLE APRN) Radiology/Procedures: Radiology/Procedures: []PROCEDURE: CHEST PA & LATERAL Exam: Chest 2 views INDICATION: Cough TECHNIQUE: Frontal and lateral views the chest Comparisons: 12/22/2019 FINDINGS: The cardiomediastinal silhouette and pulmonary vessels are within normal limits. The lung and pleural spaces are clear. IMPRESSION: No acute cardiopulmonary process. Electronically signed by: Jj Montgomery MD (03/30/2021 3:58 PM) [facility] DICTATED and SIGNED BY: JJ MONTGOMERY MD DATE: 03/30/21 [id number] (RONAN NICOLE APRN) Course & Med Decision Making: Course & Med Decision Making Pertinent Labs and Imaging studies reviewed. (See chart for details) This is a 60-year-old female patient went into the ED today complaining of cough, nasal congestion, nausea, sore throat, symptoms for 5 days. Reports several family members have similar symptoms. Chest x-ray interpreted by radiologist as negative for any acute findings, symptoms are likely viral, discharged home. Supportive care measures recommended (RONAN NICOLE APRN) Claudette Disclaimer: Claudette Disclaimer: This electronic medical record was generated, in whole or in part, using a voice recognition dictation system. (RONAN NICOLE APRN) Departure Departure Impression: Primary Impression: Cough Additional Impressions: URI (upper respiratory infection) Qualified Codes: J06.9 - Acute upper respiratory infection, unspecified Person under investigation for COVID-19 Nausea alone Disposition: HOME / SELF CARE / HOMELESS Condition: STABLE Referrals: ABHIJIT GOLDSTEIN MD (PCP) follow up with your doctor in one week Patient Instructions: Cough, Adult, [id number], Upper Respiratory Infection, Adult, [id number] Additional Instructions: You were evaluated in the emergency room, your chest x-ray is negative, your symptoms are likely take the prescribed medications as ordered. Your Covid test is pending. Maintain isolation until results are back. We will call you when results are available. Scripts Benzonatate (TESSALON PERLE) 100 Mg Capsule 1 CAP PO TID, #21 CAP Prov: RONAN NICOLE APRN 03/30/21 Ondansetron (ONDANSETRON ODT) 4 Mg Tab.rapdis 1 TAB PO PRN Q6-8HRS, #16 TAB Prov: RONAN NICOLE APRN 03/30/21 Attending Signature I have participated in the care of this patient and I have reviewed and agree with all pertinent clinical information above including history, exam, and recommendations. (ISSAC BARRETO DO) RONAN NICOLE APRN Mar 30, 2021 15:42 ISSAC BARRETO DO Mar 30, 2021 16:25
[2021-03-30] MEDS ORDERED: ONDANSETRON ODT 4 MG TAB.RAPDIS. PO ONE (15:45)
--- NOTE | 2021-03-30 16:01 | RAD ---
Exam: Chest 2 views INDICATION: Cough TECHNIQUE: Frontal and lateral views the chest Comparisons: 12/22/2019 FINDINGS: The cardiomediastinal silhouette and pulmonary vessels are within normal limits. The lung and pleural spaces are clear. IMPRESSION: No acute cardiopulmonary process. Electronically signed by: Jj Cabrera MD (03/30/2021 3:58 PM) MIA
[2021-03-30] MEDS ORDERED: BENZ100C PO (16:23)
[2021-03-30] MEDS ORDERED: ONDA4TAB12 PO (16:23)
--- NOTE | 2021-03-31 12:19 | NUR ---
IP: Attempted to contact pt concerning covid results. No answer, left a voicemail to return the call.
--- NOTE | 2021-03-31 15:59 | NUR ---
IP: Pt returned my call. Informed pt of negative covid test. Pt verbalized understanding.
== END 2021-03-30 16:30 | disposition home or self-care (01) ==
LOC: ER 15:09
DX: J06.9 Acute upper respiratory infection, unspecified (principal); Z20.822 Contact with and (suspected) exposure to COVID-19; J44.9 Chronic obstructive pulmonary disease, unspecified; E03.9 Hypothyroidism, unspecified; I10 Essential (primary) hypertension; G89.29 Other chronic pain; Z91.041 Radiographic dye allergy status; Z88.2 Allergy status to sulfonamides; Z88.6 Allergy status to analgesic agent; Z88.8 Allergy status to other drugs, medicaments and biological substances
CPT/HCPCS: 71046; 99284; U0003; U0005

== ENCOUNTER 2021-04-29 18:01 | Emergency (ER) | payer OTHER ==
[~2021-04-29] VITALS: Ht 160 cm; Wt 68.1 kg
[~2021-04-29 18:01] MED LIST changes: +AMLO-187 PO; +CEFD300C PO; +CETI10TA74 PO; +FURO-69 PO; +LEVO150T5 PO; +MORP-16 PO; +OXYC1TAB20 PO; +PSYL3.4P PO; +SOTA80TA48 PO; +TIZA4CAP PO; +TIZA6CAP3 PO
[2021-04-29 18:47] VITALS: BP 167/86
[2021-04-29 18:55] LABS: BILIRUBIN,URINE NEGATIVE (NEG); CLARITY,URINE CLEAR; COLOR,URINE YELLOW; NITRITE,URINE NEGATIVE (NEG); PH,URINE 7.5 (<5.0-8.0); PROTEIN,URINE NEGATIVE (NEG-TRACE); UROBILINOGEN,URINE 0.2 mg/dL (0.2 mg/dL)
[2021-04-29 19:06] LABS: BACTERIA,URINE 0 /HPF (0-FEW); RBC,URINE 0 /HPF (0-2); WBC,URINE 0 /HPF (0-4)
[2021-04-29] MEDS ORDERED: PRED20TA PO (19:26)
[2021-04-29] MEDS ORDERED: NITR100C62 PO (19:26)
--- NOTE | 2021-04-29 19:26 | PHYS DOC ---
Past Medical History Past Medical History: Arthritis, Asthma, COPD, Diverticulitis, Fibromyalgia, Hypertension, Hypothyroid, Kidney Stone, Other Additional Past Medical Histor: CHRONIC PAIN,TENDONITIS,LITHOTRIPSY Past Surgical History: Appendectomy, Cholecystectomy, Hysterectomy Smoking Status: Former Smoker Alcohol Use: None Drug Use: None General Adult EDM: Chief Complaint: ABDOMINAL PAIN HPI: HPI: Patient is a 61 year old female presents with the chief complaint of dysuria. Patient states dysuria started 2 days ago. Suprapubic with occasional radiation to bilateral flank. Patient denies any associated nausea or vomiting. Patient states she was recently hospitalized for UTI she is unsure what medication she was on. Patient also complains of right sciatic pain. Patient states pain has been ongoing for 2 months progressively becoming worse and more frequent. Patient states pain radiates to right buttocks with radiation down the right leg. Patient states she has had difficulty getting up from a chair due to her pain. No associated fever chills nausea or vomiting. Review of Systems: Review of Systems: Constitutional: Denies fever or chills. [] Eyes: Denies change in visual acuity. [] HENT: Denies nasal congestion or sore throat. [] Respiratory: Denies cough or shortness of breath. [] Cardiovascular: Denies chest pain or edema. [] GI: Denies abdominal pain, nausea, vomiting, bloody stools or diarrhea. [] : Positive dysuria. [] Musculoskeletal: Positive back pain Integument: Denies rash. [] Neurologic: Denies headache, focal weakness or sensory changes. [] Endocrine: Denies polyuria or polydipsia. [] Lymphatic: Denies swollen glands. [] Psychiatric: Denies depression or anxiety. [] Heart Score: C/O Chest Pain: N/A Risk Factors: Risk Factors: DM, Current or recent (<one month) smoker, HTN, HLP, family history of CAD, obesity. Risk Scores: Score 0 - 3: 2.5% MACE over next 6 weeks - Discharge Home Score 4 - 6: 20.3% MACE over next 6 weeks - Admit for Clinical Observation Score 7 - 10: 72.7% MACE over next 6 weeks - Early Invasive Strategies Allergies: Allergies: Allergies Coded Allergies Type Severity Reaction Last Updated Verified Iodine and Iodide Containing Produc Allergy Intermediate RASH 03/23/17 Yes iodine Allergy Intermediate hives 03/23/17 Yes Sulfa (Sulfonamide Antibiotics) Allergy Unknown 12/22/19 Yes ibuprofen Allergy Unknown 12/22/19 Yes ketorolac Adverse Reaction Intermediate confused 06/17/16 Yes tramadol Adverse Reaction Intermediate confused 06/17/16 Yes Physical Exam: PE: General: alert, no acute distress. Skin: warm, dry and intact. HENT: bilateral external ears normal, oropharynx moist, nose normal. Head:: Normocephalic, atraumatic. Neck: Trachea midline. Eyes: EOMI, Normal conjunctiva, No drainage CARDIOVASCULAR: Regular rate and rhythm RESPIRATORY: No respiratory distress Back: Full range of motion. Skin: Warm, dry, no erythema, no rash. MUSCULOSKELETAL: Full range of motion of bilateral upper and lower extremities. GASTROINTESTINAL: Abdomen soft without rebound or guarding. NEUROLOGICAL: Alert and noted to person, place and time. No neurological deficits observed Psychiatric: Cooperative. Normal judgment Current Patient Data: Labs: Laboratory Tests Test 04/29/21 18:15 Urine Collection Type Void Urine Color Yellow Urine Clarity Clear Urine pH 7.5 (<5.0-8.0) Urine Specific White 1.010 (1.000-1.030) Urine Protein Negative mg/dL (NEG-TRACE) Urine Glucose (UA) Negative mg/dL (NEG) Urine Ketones (Stick) Negative mg/dL (NEG) Urine Blood Negative (NEG) Urine Nitrite Negative (NEG) Urine Bilirubin Negative (NEG) Urine Urobilinogen Dipstick 0.2 mg/dL (0.2 mg/dL) Urine Leukocyte Esterase Negative (NEG) Urine RBC 0 /HPF (0-2) Urine WBC 0 /HPF (0-4) Urine Squamous Epithelial Cells Few /LPF Urine Bacteria 0 /HPF (0-FEW) Vital Signs: Vital Signs Date Time Temp Pulse Resp B/P (MAP) Pulse Ox O2 Delivery O2 Flow Rate FiO2 04/29/21 18:47 97.0 92 20 167/86 (87) 95 Room Air 97.0 EKG: EKG: [] Radiology/Procedures: Radiology/Procedures: [] Course & Med Decision Making: Course & Med Decision Making Pertinent Labs and Imaging studies reviewed. (See chart for details) [] Patient's urine obtained negative for LEs nitrates or WBCs. Due to patient's complaint of dysuria despite a negative urine will place patient on antibiotics. Place patient on Macrobid and Pyridium. Regarding patient's sciatica will place patient on steroids. Patient has prescription hydrocodone and morphine. Dragon Disclaimer: Claudette Disclaimer: This electronic medical record was generated, in whole or in part, using a voice recognition dictation system. Departure Departure Impression: Primary Impression: Dysuria Additional Impression: Sciatic leg pain Disposition: HOME / SELF CARE / HOMELESS Condition: STABLE Referrals: ABHIJIT GOLDSTEIN MD (PCP) Patient Instructions: Dysuria, Sciatica Scripts Prednisone (PREDNISONE) 20 Mg Tablet 1 TAB PO UD for 12 Days, #15 TAB Take 2 tabs days 1,2,3 1.5 tabs days 3,4,5 1 tab days 6,7,8 0.5 tab days 9,10,11 Prov: ERROL KELLEY DO 04/29/21 Nitrofurantoin Monohyd/M-Cryst (MACROBID 100 MG CAPSULE) 100 Mg Capsule 1 CAP PO BID for 5 Days, #10 CAP 0 Refills Prov: ERROL KELLEY DO 04/29/21 ERROL KELLEY DO Apr 29, 2021 19:26
== END 2021-04-29 19:50 | disposition home or self-care (01) ==
LOC: ER 18:01
DX: R30.0 Dysuria (principal); M54.41 Lumbago with sciatica, right side; J44.9 Chronic obstructive pulmonary disease, unspecified; I10 Essential (primary) hypertension; E03.9 Hypothyroidism, unspecified; G89.29 Other chronic pain; Z87.891 Personal history of nicotine dependence; Z90.49 Acquired absence of other specified parts of digestive tract; Z90.89 Acquired absence of other organs; Z90.710 Acquired absence of both cervix and uterus; Z91.041 Radiographic dye allergy status; Z88.2 Allergy status to sulfonamides; Z88.6 Allergy status to analgesic agent; Z88.8 Allergy status to other drugs, medicaments and biological substances
CPT/HCPCS: 81001; 99283

== ENCOUNTER 2021-05-12 18:15 | Emergency (ER) | payer OTHER ==
[~2021-05-12] VITALS: Ht 157.5 cm; Wt 86.4 kg
[~2021-05-12 18:15] MED LIST changes: +NITR100C62 PO; +PRED20TA PO
--- NOTE | 2021-05-12 21:05 | ED.ADGEN ---
Past Medical History Past Medical History: Arthritis, Asthma, COPD, Diverticulitis, Fibromyalgia, Hypertension, Hypothyroid, Kidney Stone, Other Additional Past Medical Histor: CHRONIC PAIN,TENDONITIS,LITHOTRIPSY Past Surgical History: Appendectomy, Cholecystectomy, Hysterectomy Smoking Status: Never Smoker Alcohol Use: None Drug Use: None General Adult EDM: Chief Complaint: NAUSEA/VOMITING/DIARRHEA HPI: HPI: Patient is a 61 year old female coming in for 2 days of abdominal pain, nausea with dry heaves, and diarrhea. Patient states she started having the diarrhea after she took 1 for opioid reversal pills. Patient is gotten her first Pfizer vaccine, pending her second in 1 week. Denies any fevers or cough. Surgical history of cholecystectomy and total hysterectomy. Review of Systems: Review of Systems: All other systems within normal limits except for as noted in the HPI Current Medications: Current Medications Medications (Trade) Dose Ordered Sig/Faye Start Time Stop Time Status Last Admin Dose Admin Dicyclomine HCl (Bentyl) 20 mg 1X ONCE 05/12/21 22:45 05/12/21 22:46 UNV Fentanyl Citrate (Fentanyl 2ml Vial) 75 mcg 1X ONCE 05/12/21 21:30 05/12/21 21:31 DC 05/12/21 21:46 75 MCG Ondansetron HCl (Zofran) 4 mg 1X ONCE 05/12/21 21:30 05/12/21 21:31 DC 05/12/21 21:46 4 MG Oxycodone/ Acetaminophen (Percocet 10/325) 1 tab 1X ONCE 05/12/21 22:45 05/12/21 22:46 UNV Sodium Chloride 1,000 ml @ 1,000 mls/hr 1X ONCE 05/12/21 21:15 05/12/21 22:14 DC 05/12/21 21:45 1,000 MLS/HR Allergies: Allergies: Allergies Coded Allergies Type Severity Reaction Last Updated Verified Iodine and Iodide Containing Produc Allergy Intermediate RASH 03/23/17 Yes Sulfa (Sulfonamide Antibiotics) Allergy Intermediate 05/12/21 Yes iodine Allergy Intermediate hives 03/23/17 Yes ibuprofen Allergy Unknown 12/22/19 Yes ketorolac Adverse Reaction Intermediate confused 06/17/16 Yes tramadol Adverse Reaction Intermediate confused 06/17/16 Yes Physical Exam: PE: Constitutional: Well developed, well nourished, no acute distress, non-toxic appearance. [] HENT: Normocephalic, atraumatic, bilateral external ears normal, nose normal. [] Eyes: PERRLA, conjunctiva normal, no discharge. [] Neck: No rigidity, supple, no stridor. [] Cardiovascular: Regular rate and rhythm, brisk cap refill [] Lungs & Thorax: Non labored symmetric respirations, no tachypnea or respiratory distress [] Abdomen: Soft, mildly distended, no guarding or discomfort on distracted abdominal exam Skin: Warm, dry, no erythema, no rash. [] Back: Unremarkable Extremities: No deformities, range of motion grossly intact, no lower extremity edema [] Neurologic: Alert and oriented X 3, no focal deficits noted. [] Psychologic: Affect normal, judgement normal, mood normal. [] Current Patient Data: Labs: Laboratory Tests Test 05/12/21 20:35 05/12/21 21:45 05/12/21 21:50 White Blood Count 16.1 x10^3/uL (4.0-11.0) H Red Blood Count 5.15 x10^6/uL (3.50-5.40) Hemoglobin 14.5 g/dL (12.0-15.5) Hematocrit 43.2 % (36.0-47.0) Mean Corpuscular Volume 84 fL (79-100) Mean Corpuscular Hemoglobin 28 pg (25-35) Mean Corpuscular Hemoglobin Concent 34 g/dL (31-37) Red Cell Distribution Width 14.8 % (11.5-14.5) H Platelet Count 306 x10^3/uL (140-400) Neutrophils (%) (Auto) 88 % (31-73) H Lymphocytes (%) (Auto) 7 % (24-48) L Monocytes (%) (Auto) 4 % (0-9) Eosinophils (%) (Auto) 0 % (0-3) Basophils (%) (Auto) 1 % (0-3) Neutrophils # (Auto) 14.2 x10^3/uL (1.8-7.7) H Lymphocytes # (Auto) 1.2 x10^3/uL (1.0-4.8) Monocytes # (Auto) 0.6 x10^3/uL (0.0-1.1) Eosinophils # (Auto) 0.0 x10^3/uL (0.0-0.7) Basophils # (Auto) 0.1 x10^3/uL (0.0-0.2) Segmented Neutrophils % 84 % (35-66) H Band Neutrophils % 5 % (0-9) Lymphocytes % 7 % (24-48) L Monocytes % 4 % (0-10) Platelet Estimate Adequate (ADEQUATE) Sodium Level 140 mmol/L (136-145) Potassium Level 3.6 mmol/L (3.5-5.1) Chloride Level 100 mmol/L (98-107) Carbon Dioxide Level 26 mmol/L (21-32) Anion Gap 14 (6-14) Blood Urea Nitrogen 7 mg/dL (7-20) Creatinine 0.6 mg/dL (0.6-1.0) Estimated GFR (Cockcroft-Gault) 102.0 BUN/Creatinine Ratio 12 (6-20) Glucose Level 129 mg/dL (70-99) H Calcium Level 9.5 mg/dL (8.5-10.1) Total Bilirubin 0.5 mg/dL (0.2-1.0) Aspartate Amino Transferase (AST) 14 U/L (15-37) L Alanine Aminotransferase (ALT) 21 U/L (14-59) Alkaline Phosphatase 107 U/L (46-116) Total Protein 7.9 g/dL (6.4-8.2) Albumin 4.0 g/dL (3.4-5.0) Albumin/Globulin Ratio 1.0 (1.0-1.7) Lipase 111 U/L (73-393) Urine Collection Type Unknown Urine Color Cori Urine Clarity Cloudy Urine pH 5.5 (<5.0-8.0) Urine Specific [place] 1.025 (1.000-1.030) Urine Protein 30 mg/dL (NEG-TRACE) Urine Glucose (UA) Negative mg/dL (NEG) Urine Ketones (Stick) >=80 mg/dL (NEG) Urine Blood Negative (NEG) Urine Nitrite Negative (NEG) Urine Bilirubin Small (NEG) Urine Urobilinogen Dipstick 0.2 mg/dL (0.2 mg/dL) Urine Leukocyte Esterase Trace (NEG) Urine RBC 0 /HPF (0-2) Urine WBC 1-4 /HPF (0-4) Urine Squamous Epithelial Cells Many /LPF Urine Bacteria 0 /HPF (0-FEW) Urine Mucus Marked /LPF Lactic Acid Level 0.7 mmol/L (0.4-2.0) Laboratory Tests 05/12/21 20:35 Laboratory Tests 05/12/21 20:35 Vital Signs: Vital Signs Date Time Temp Pulse Resp B/P (MAP) Pulse Ox O2 Delivery O2 Flow Rate FiO2 05/12/21 20:20 98.3 118 18 156/86 (87) 95 Room Air 98.3 EKG: EKG: [] Heart Score: C/O Chest Pain: No Risk Factors: Risk Factors: DM, Current or recent (<one month) smoker, HTN, HLP, family history of CAD, obesity. Risk Scores: Score 0 - 3: 2.5% MACE over next 6 weeks - Discharge Home Score 4 - 6: 20.3% MACE over next 6 weeks - Admit for Clinical Observation Score 7 - 10: 72.7% MACE over next 6 weeks - Early Invasive Strategies Radiology/Procedures: Radiology/Procedures: [facility] [address] [place] [address] IMAGING REPORT Signed PATIENT: DANNY MELENDREZ SACCOUNT: [id number] : 1960 LOCATION: ER AGE: 61 SEX: F EXAM STATUS: REG ER ORD. PHYSICIAN: YAMILEX DIAZ MD REASON: abd pain, distention PROCEDURE: CT ABDOMEN PELVIS WO CONTRAST Exam: CT of abdomen and pelvis without contrast INDICATION: Abdominal pain, distention TECHNIQUE: Sequential axial images through the abdomen and pelvis obtained without IV contrast. Sagittal and coronal reformatted images were reconstructed from the axial data and reviewed. Exposure: One or more of the following in the visualized dose reduction techniques were utilized for this examination: 1. Automated exposure control 2. Adjustment of the MA and/or KV according to patient size 3. Use of iterative of reconstructive technique Comparisons: 04/22/2021 FINDINGS: Heart size is normal. No pericardial effusion. Visualized lung bases are clear. No pleural effusion. Evaluation of solid organs limited secondary to noncontrast technique. Liver, spleen, pancreas and adrenals are unremarkable. Gallbladder surgically absent. No perinephric inflammation or hydronephrosis. No renal or ureteral calculi are identified. Bladder is decompressed not well evaluated. Uterus is absent. No abnormal adnexal mass. Fluid noted within the descending colon. Small bowel is unremarkable. No free intra-abdominal air or fluid. No obstruction. Abdominal aorta has a normal course caliber. No enlarged abdominal lymph nodes are identified. No suspicious osseous lesions or acute fracture. IMPRESSION: Fluid-filled distention of the descending colon correlate for diarrhea. Electronically signed by: Jj Montgomery MD (05/12/2021 9:58 PM) [facility] DICTATED and SIGNED BY: JJ MONTGOMERY MD DATE: 05/12/21 [id number] [] Course & Med Decision Making: Course & Med Decision Making Pertinent Labs and Imaging studies reviewed. (See chart for details) [] Dragon Disclaimer: Dragon Disclaimer: This electronic medical record was generated, in whole or in part, using a voice recognition dictation system. Departure Departure Impression: Primary Impression: Diarrhea Disposition: HOME / SELF CARE / HOMELESS Condition: STABLE Referrals: ABHIJIT GOLDSTEIN MD (PCP) Patient Instructions: Diet for Diarrhea, Adult Scripts Ondansetron (ONDANSETRON ODT) 4 Mg Tab.rapdis 1 TAB PO PRN Q6-8HRS PRN for NAUSEA, #16 TAB Prov: YAMILEX DIAZ MD 05/12/21 Dicyclomine Hcl (DICYCLOMINE HCL) 20 Mg Tablet 1 TAB PO TID PRN for DIARRHEA, #30 TAB 1 Refill Prov: YAMILEX DIAZ MD 05/12/21 YAMILEX DIAZ MD May 12, 2021 21:05
[2021-05-12 21:06] LABS: BASO # 0.1 x10^3/uL (0.0-0.2); BASO % 1 % (0-3); EOS % 0 % (0-3); HEMATOCRIT 43.2 % (36.0-47.0); HEMOGLOBIN 14.5 g/dL (12.0-15.5); LYMPH # 1.2 x10^3/uL (1.0-4.8); LYMPH % 7 % (24-48); MEAN CORPUSCULAR HEMOGLOBIN 28 pg (25-35); MEAN CORPUSCULAR HGB CONC 34 g/dL (31-37); MEAN CORPUSCULAR VOLUME 84 fL (79-100); MONO # 0.6 x10^3/uL (0.0-1.1); MONO % 4 % (0-9); NEUT # 14.2 x10^3/uL (1.8-7.7); NEUT % 88 % (31-73); PLATELET COUNT 306 x10^3/uL (140-400); RED BLOOD COUNT 5.15 x10^6/uL (3.50-5.40); RED CELL DISTRIBUTION WIDTH 14.8 % (11.5-14.5); WHITE BLOOD COUNT 16.1 x10^3/uL (4.0-11.0)
[2021-05-12] MEDS ORDERED: IV NORMAL SALINE 1000ML BAG 1,000 ML IV ONE (21:15)
[2021-05-12 21:16] LABS: CALCIUM 9.5 mg/dL (8.5-10.1); CREATININE 0.6 mg/dL (0.6-1.0); POTASSIUM 3.6 mmol/L (3.5-5.1)
[2021-05-12 21:21] LABS: TOTAL BILIRUBIN 0.5 mg/dL (0.2-1.0); TOTAL PROTEIN 7.9 g/dL (6.4-8.2)
[2021-05-12] MEDS ORDERED: fentaNYL PF VIAL 100 MCG/2 ML VIAL IVP ONE (21:30)
[2021-05-12] MEDS ORDERED: ONDANSETRON PF 4 MG/2 ML VIAL. IVP ONE (21:30)
[2021-05-12 21:41] LABS: % BANDS 5 % (0-9); % LYMPHS 7 % (24-48); % MONOS 4 % (0-10); % SEGS 84 % (35-66); PLT ESTIMATE ADEQUATE (ADEQUATE)
--- NOTE | 2021-05-12 22:00 | RAD ---
Exam: CT of abdomen and pelvis without contrast INDICATION: Abdominal pain, distention TECHNIQUE: Sequential axial images through the abdomen and pelvis obtained without IV contrast. Sagit tyrone and coronal reformatted images were reconstructed from the axial data and reviewed. Exposure: One or more of the following in the visualized dose reduction techniques were utilized for this examination: 1. Automated exposure control 2. Adjustment of the MA and/or KV according to patient size 3. Use of iterative of reconstructive technique Comparisons: 04/22/2021 FINDINGS: Heart size is normal. No pericardial effusion. Visualized lung bases are clear. No pleural effusion. Evaluation of solid organs limited secondary to noncontrast technique. Liver, spleen, pancreas and adrenals are unremarkable. Gallbladder surgically absent. No perinephric inflammation or hydronephrosis. No renal or ureteral calculi are identified. Bladder is decompressed not well evaluated. Uterus is absent. No abnormal adnexal mass. Fluid noted within the descending colon. Small bowel is unremarkable. No free intra-abdominal air or fluid. No obstruction. Abdominal aorta has a normal course caliber. No enlarged abdominal lymph nodes are identified. No suspicious osseous lesions or acute fracture. IMPRESSION: Fluid-filled distention of the descending colon correlate for diarrhea. Electronically signed by: Jj Cabrera MD (05/12/2021 9:58 PM) [facility]
[2021-05-12 22:01] LABS: BILIRUBIN,URINE SMALL (NEG); CLARITY,URINE CLOUDY; COLOR,URINE AMBER; NITRITE,URINE NEGATIVE (NEG); PH,URINE 5.5 (<5.0-8.0); PROTEIN,URINE 30 mg/dL (NEG-TRACE); UROBILINOGEN,URINE 0.2 mg/dL (0.2 mg/dL)
[2021-05-12 22:06] LABS: BACTERIA,URINE 0 /HPF (0-FEW); RBC,URINE 0 /HPF (0-2)
[2021-05-12] MEDS ORDERED: DICY20TA3 PO (22:38)
[2021-05-12] MEDS ORDERED: ONDA4TAB12 PO (22:38)
[2021-05-12 22:54] VITALS: BP 99/56
[2021-05-12] MEDS ORDERED: DICYCLOMINE 20 MG/2 ML VIAL. IM ONE (23:00)
[2021-05-12] MEDS ORDERED: oxyCODONE/APAP 10/325 1 TAB TABLET PO ONE (23:00)
== END 2021-05-12 23:15 | disposition home or self-care (01) ==
LOC: ER 18:15
DX: R19.7 Diarrhea, unspecified (principal); R11.0 Nausea; R10.9 Unspecified abdominal pain; J44.9 Chronic obstructive pulmonary disease, unspecified; I10 Essential (primary) hypertension; E03.9 Hypothyroidism, unspecified; G89.29 Other chronic pain; Z90.89 Acquired absence of other organs; Z90.49 Acquired absence of other specified parts of digestive tract; Z90.710 Acquired absence of both cervix and uterus; Z88.2 Allergy status to sulfonamides; Z91.041 Radiographic dye allergy status; Z88.6 Allergy status to analgesic agent; Z88.8 Allergy status to other drugs, medicaments and biological substances
CPT/HCPCS: 36415; 74176; 80053; 81001; 83605; 83690; 85007; 85025; 87086; 96361; 96372; 96374; 96375; 99285; J0500; J2405; J3010; J7030

== ENCOUNTER → 2021-07-09 | Outpatient (CLI) | payer OTHER ==
--- NOTE | 2021-07-09 17:38 | RAD ---
AP view of the pelvis and two-view study of both hips Clinical indications: Bilateral hip pain. Low back pain. FINDINGS: Hip joints are symmetric without arthritic change. 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 No acute fracture or dislocation or diastases or lytic process is evident. IMPRESSION: Unremarkable radiographic study of both hips. Electronically signed by: Priyank Prather MD (07/09/2021 5:35 PM) [id number]
--- NOTE | 2021-07-09 17:43 | RAD ---
EXAM: Lumbar spine, 3 views; sacroiliac joints, 3 views. HISTORY: Pain. COMPARISON: 07/09/2021 FINDINGS: 3 views of the lumbar spine and sacroiliac joints are obtained. There is 2 mm grade 1 anter olisthesis of L4 and L5. There is degenerative endplate remodeling with disc space narrowing and oste ophytosis at the lower thoracic and upper lumbar levels. There is facet arthropathy at the lower lumb ar levels. There are cholecystectomy clips. There is degenerative subchondral scoliosis involving the sacroiliac joints. No osseous erosion is seen. The femoral heads are normal in configuration and sea lissette appropriately. IMPRESSION: 1. Multilevel degenerative change involving the lumbar spine and lower thoracic spine, described abov e. 2. Minimal grade 1 anterolisthesis of L4 on L5. 3. Degenerative change involving the sacroiliac joints. Electronically signed by: Claudia Adamson MD (07/09/2021 5:40 PM) [facility]
== END ==
LOC: RAD 14:59
DX: M47.25 Other spondylosis with radiculopathy, thoracolumbar region (principal); M48.05 Spinal stenosis, thoracolumbar region; M43.16 Spondylolisthesis, lumbar region; M46.1 Sacroiliitis, not elsewhere classified; M25.78 Osteophyte, vertebrae; Z90.49 Acquired absence of other specified parts of digestive tract
CPT/HCPCS: 72100; 72202; 73521

== ENCOUNTER 2022-01-06 16:59 | Emergency (ER) | payer OTHER ==
[~2022-01-06] VITALS: Ht 157.5 cm; Wt 86.2 kg
[~2022-01-06 16:59] MED LIST changes: +DICY20TA PO; -DICY20TA3 PO
[2022-01-06 17:10] VITALS: BP 126/79
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
[2022-01-06] MEDS ORDERED: HYDROcodone/APAP 5/325MG 1 TAB TABLET PO ONE (18:00)
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
== END 2022-01-06 19:00 | disposition home or self-care (01) ==
LOC: ER 16:59
DX: M54.2 Cervicalgia (principal); G89.29 Other chronic pain; G89.11 Acute pain due to trauma; J44.9 Chronic obstructive pulmonary disease, unspecified; I10 Essential (primary) hypertension; E03.9 Hypothyroidism, unspecified; Z88.2 Allergy status to sulfonamides; Z88.6 Allergy status to analgesic agent; Z88.4 Allergy status to anesthetic agent; Z91.041 Radiographic dye allergy status; Z88.8 Allergy status to other drugs, medicaments and biological substances; V49.49XA Driver injured in collision with other motor vehicles in traffic accident, initial encounter; Y93.89 Activity, other specified; Y92.488 Other paved roadways as the place of occurrence of the external cause; Y99.8 Other external cause status
CPT/HCPCS: 70450; 72125; 99284-25